=== PATIENT | male | born 1955 | race Caucasian/White ===

== ENCOUNTER 2017-05-06 13:10 | Inpatient (IN) ==
[2017-05-06] MEDS ORDERED: Aspirin 81 MG TAB.CHEW PO STA (15:03)
[2017-05-06 15:13] LABS: Basophils % 0.8 %; Eosinophils # 0.1 K/mcL (0.0-0.6); Eosinophils % 1.2 %; Hematocrit 36.4 % (37.5-50.1); Hemoglobin 11.7 g/dL (12.9-16.9); Immature Granulocytes % 0.2 % (0-4); Lymphocytes # 0.8 K/mcL (0.6-4.6); Lymphocytes % 16.6 %; Mean Corpuscular HGB Conc 32.1 g/dL (31.6-35.5); Mean Corpuscular Hemoglobin 27.5 pg (28.0-33.3); Mean Corpuscular Volume 85.4 fL (83.0-100.0); Mean Platelet Volume 10.6 fL (9.4-12.4); Monocytes # 0.4 K/mcL (0.0-1.3); Monocytes % 7.7 %; Neutrophils # 3.6 K/mcL (1.6-8.9); Platelet Count 113 K/mcL (140-400); Red Blood Count 4.26 M/mcL (4.19-5.50); Red Cell Distribution Width 14.5 % (11.5-14.5); Segmented Neutrophils % 73.5 %
--- NOTE | 2017-05-06 15:29 | Emergency Department Note ---
Disposition Clinical Impression: ACS (acute coronary syndrome) Disposition: Admitted As Inpatient Referrals: Angela Bowden CNP [Primary Care Provider] - Forms: ED Satisfaction Letter Time of Disposition: 15:51 Chest Pain HPI - General Chief Complaint: ED Chest Pain Stated Complaint: CP Source: patient Vital Signs Reviewed: Yes Nursing Notes Reviewed: Yes - History of Present Illness HPI Narrative: History of present illness: 61-year-old male former smoker history of hypertension and high cholesterol. Family history coronary artery disease presents to emergency department with chest pain and pressure radiating to the arm and neck with some shortness of breath. Pain was rated a 5 out of 10. No recent stress test has been performed. Patient is here for further evaluation. He says he has some mild shortness of breath and nausea but denies diaphoresis and weakness Reports having a heart attack about 6 or 7 years ago Severity scale (1-10): 8 - Related Data Home Medications Medication Instructions Recorded Confirmed Exenatide Microspheres [Bydureon] 2 mg SQ QWEEK 05/06/17 05/06/17 Insulin Glargine,Hum.rec.anlog 35 unit SQ HS 05/06/17 05/06/17 [Lantus Solostar] Insulin LISPRO [Humalog Kwikpen 12 unit SQ TIDWM 05/06/17 05/06/17 U-100] Lisinopril [Zestril] 5 mg PO DAILY 05/06/17 05/06/17 Metformin HCl [Glucophage] 1,000 mg PO BIDWM 05/06/17 05/06/17 Metoprolol [Lopressor] 25 mg PO BID 05/06/17 05/06/17 Pravastatin Sodium [Pravachol] 40 mg PO HS 05/06/17 05/06/17 Ranitidine HCl [Zantac] 150 mg PO BID 05/06/17 05/06/17 glipiZIDE [Glipizide] 10 mg PO BID 05/06/17 05/06/17 Allergies Allergy/AdvReac Type Severity Reaction Status Date / Time No Known Drug Allergies Allergy See Verified 05/06/17 13:46 Comments All systems ED: reviewed and negative except as stated. Cardiovascular: Reports: chest pain Chest Pain PMH - Past Medical History Medical history: Reports: diabetes, hypertension, myocardial infarction Surgical history: Reports: no surgical history Psychiatric history: Reports: no psych history - Social History Smoking Status: Never smoker Alcohol use: Reports: none Drug use: Reports: none Physical Exam - General Limitations: no limitations General appearance: alert, in no apparent distress - Head Head exam: atraumatic - Eye Eye exam: Present: normal appearance, PERRL - ENT ENT exam: normal exam, normal oropharynx - Neck Neck exam: Present: normal inspection, full ROM - Chest Chest inspection: Present: normal inspection, symmetric chest wall rise - Respiratory Respiratory exam: Present: normal lung sounds bilaterally - Cardiovascular Cardiovascular exam: Present: regular rate, normal rhythm - Abdominal Exam Abdominal exam: Present: soft, Non-Tender - Extremities Exam Extremities exam: Present: normal inspection - Expanded Lower Extremity Exam Neurovascular/Tendon exam: Present: normal capillary refill Gait: not tested/not observed - Back Exam Back exam: Present: normal inspection, full ROM - Neurological Exam Neurological exam: Present: alert, oriented X3 - Psychiatric Psychiatric exam: Present: normal affect, normal mood - Skin Skin exam: Present: warm, dry, intact Course - Reevaluation(s) Reevaluation #1: Critical elevation of troponin 0.15 consistent with an STEMI. Patient will get ACS heparinization. Admission orders placed. Discussed the case with Dr. Uriostegui who graciously except the patient for admission with a cardiology consult being placed Time: 15:51 Vital Signs Temperature 98.5 F 05/06/17 13:43 Pulse Rate 81 05/06/17 13:43 Respiratory Rate 16 05/06/17 13:43 Blood Pressure 160/97 05/06/17 13:43 O2 Sat by Pulse Oximetry 95 05/06/17 13:43 Temperature 98.5 F 05/06/17 13:43 Pulse Rate 81 05/06/17 15:37 Respiratory Rate 18 05/06/17 15:37 Blood Pressure 154/94 05/06/17 15:37 O2 Sat by Pulse Oximetry 95 05/06/17 15:37 Oxygen Delivery Oxygen Delivery Room Air Chest Pain - Medical Records Medical records reviewed: Yes I reviewed the patient's medical records. - Lab Data Lab results reviewed: Yes I reviewed the patient's lab results. Result diagrams: 05/06/17 15:02 05/06/17 15:02 Lab Results 05/06/17 05/06/17 05/06/17 Range/Units 15:02 15:02 15:02 WBC 4.8 (4.3-11.1) K/mcL RBC 4.26 (4.19-5.50) M/mcL Hgb 11.7 L (12.9-16.9) g/dL Hct 36.4 L (37.5-50.1) % MCV 85.4 (83.0-100.0) fL MCH 27.5 L (28.0-33.3) pg MCHC 32.1 (31.6-35.5) g/dL RDW 14.5 (11.5-14.5) % Plt Count 113 L (140-400) K/mcL MPV 10.6 (9.4-12.4) fL Immature Gran % 0.2 (0-4) % Seg Neutrophils % 73.5 % Lymphocytes % 16.6 % Monocytes % 7.7 % Eosinophils % 1.2 % Basophils % 0.8 % Neutrophils # 3.6 (1.6-8.9) K/mcL Lymphocytes # 0.8 (0.6-4.6) K/mcL Monocytes # 0.4 (0.0-1.3) K/mcL Eosinophils # 0.1 (0.0-0.6) K/mcL Basophils # 0.0 (0.0-0.2) K/mcL Sodium 135 L (136-145) mEq/L Potassium 4.3 (3.5-5.1) mEq/L Chloride 101 (98-107) mEq/L Carbon Dioxide 28 (23-29) mEq/L BUN 13 (8-23) mg/dL Creatinine 0.87 (0.70-1.30) mg/dL Est GFR ( Amer) > 60 (> 60) Est GFR (Non-Af Amer) > 60 (> 60) BUN/Creatinine Ratio 15 (6-26) Glucose 268 H (70-105) mg/dL Calculated Osmolality 290 (280-300) Calcium 9.3 (8.6-10.3) mg/dL Troponin I 0.15 H* (< 0.04) ng/mL - Radiology Data Radiology results reviewed: Yes I reviewed the patient's radiology results. - EKG Data EKG attestation: Yes I reviewed and interpreted this EKG. EKG results narrative: Twelve-lead EKG interpreted without Cardiologic assistance shows the following: On his rhythm at 77 bpm, normal OR, QRS, QT corrected. Borderline left axis deviation. Nonspecific ST-T changes. No acute ischemic changes noted. No acute changes when compared to her prior EKG dated 12/28/2016 Heart Score - Score History: Moderately Suspicious EKG: Non Specific repolarisation Disturbance Age: 45-65 Risk Factors: Equal/Greater than 3 risk factor or history of atherosclerotic disease Troponin: Less than normal limit HEART Score Total: 5
[2017-05-06 15:33] LABS: BUN/Creatinine Ratio 15 (6-26); Blood Urea Nitrogen 13 mg/dL (8-23); Calcium 9.3 mg/dL (8.6-10.3); Carbon Dioxide 28 mEq/L (23-29); Chloride 101 mEq/L (98-107); Glucose 268 mg/dL (70-105); Osmolality,Calculated 290 (280-300); Potassium 4.3 mEq/L (3.5-5.1); Sodium 135 mEq/L (136-145); eGFR For African Americans > 60 (> 60); eGFR For Non-African Americans > 60 (> 60)
[2017-05-06] MEDS: Nitroglycerin 0.4 MG TAB.SUBL SL PRN ×2 (15:35→15:46)
[2017-05-06] MEDS ORDERED: *HR* Heparin 5,000 UNIT/ML VIAL IVP PRN (15:53)
[2017-05-06] MEDS ORDERED: *HR* Heparin 5,000 UNIT/ML VIAL IVP ONE (15:53)
[2017-05-06 16:16] LABS: INR 1.3; Prothrombin Time 13.7 Seconds (9.4-12.1)
[2017-05-06 16:19] LABS: Activated Partial Thrombo Time 29.4 Seconds (26.0-36.0)
[2017-05-06] MEDS ORDERED: Dextrose Gel 15 GM/37.5 ML TUBE PO PRN ×2 (16:52)
[2017-05-06] MEDS ORDERED: Naloxone 0.4 MG/ML INJ IVP PRN (16:52)
[2017-05-06] MEDS ORDERED: D5% in Water 1,000 ML IVC PRN (16:52)
[2017-05-06] MEDS ORDERED: *HR* Dextrose 50 % in Water (Syg) 50 ML SYRINGE IVP PRN (16:52)
--- NOTE | 2017-05-06 17:13 | Internal Med History&Physical ---
Date of Encounter: 05/06/17 Time of Encounter: 17:10 Assessment and Plan (1) ACS (acute coronary syndrome) Current visit: Yes Status: Acute ASSESSMENT: Chest pain due to NSTEMI. Initial troponin 0.15. CAD Risk: HTN, HLD, FM hx, prior SD, DM, Former Smoker Denies having a recent cardiac workup, no recent w/u on file PLAN: - cardiac enzymes x 2 q 6 hr - EKG - ASA - Metoprolol - O2 by NC to keep SpO2 greater than 92% - CBCD, BMP in AM - Fasting lipids - Heparin gtt - 2D Echo - Cardiology consult- ED physician spoke with cardiology and reports that their recommendation are a heparin gtt and a LHC tomorrow. -Continuous tele, and Spo2 monitoring (2) HTN (hypertension) Current visit: Yes Status: Acute Stable, continue antihypertensives Qualifiers: Hypertension type: essential hypertension Qualified Code(s): I10 - Essential (primary) hypertension (3) HLD (hyperlipidemia) Current visit: Yes Status: Acute Continue statin Qualifiers: Hyperlipidemia type: pure hypercholesterolemia Qualified Code(s): E78.00 - Pure hypercholesterolemia, unspecified; E78.0 - Pure hypercholesterolemia (4) DM (diabetes mellitus) Current visit: Yes Status: Acute Continue basal insulin and start sliding scale insulin coverage with diabetic/ cardiac diet. NPO after midnight Qualifiers: Diabetes mellitus type: type 2 Diabetes mellitus complication status: without complication Diabetes mellitus custodial insulin use: with custodial use Qualified Code(s): E11.9 - Type 2 diabetes mellitus without complications ; Z79.4 - termite exterminator (current) use of insulin; Z79.4 - shelter (current) use of insulin; Z79.4 - shelter (current) use of insulin; Z79.4 - shelter ( current) use of insulin (5) DVT prophylaxis Current visit: Yes Status: Acute Heparin gtt Internal Medicine - H&P: HPI Chief complaint: chest pain Admitted From: Home Plans for Post Hospital Care: Home History of present illness: Mr. Escobar is a 61 year old male with a PMH of prior SD, HTN, HLD and diabetes. He also reports he is a former smoker. He presents to [facility] ED today with chest pain/pressure with radiation to the mid back and scapula which began this morning and is continual. Additionally, he notes some mild shortness of breath , diaphoresis and weakness. He denies any fever, chills, nausea, vomiting, abdominal pain or unilateral extremity swelling/pain. His initial troponin is 0.15 Past Med Surg Social Fam HX - Past Medical History Medical history: diabetes, hypertension, myocardial infarction Psychiatric history: no psych history - Past Surgical History Surgical History: no surgical history - Social History Smoking Status: Never smoker Smokeless Tobacco Status: No Alcohol use: none Drug use: none - Family History Brother Hx Family Cardiac Disorders: Yes (SD) Hx Family Endocrine Disorder: Yes (DM) Internal Medicine - H&P: Meds Exenatide Microspheres [Bydureon] 2 mg SQ QWEEK 05/06/17 [History] Insulin Glargine,Hum.rec.anlog [Lantus Solostar] 35 unit SQ HS 05/06/17 [History ] Insulin LISPRO [Humalog Kwikpen U-100] 12 unit SQ TIDWM 05/06/17 [History] Lisinopril [Zestril] 5 mg PO DAILY 05/06/17 [History] Metformin HCl [Glucophage] 1,000 mg PO BIDWM 05/06/17 [History] Metoprolol [Lopressor] 25 mg PO BID 05/06/17 [History] Pravastatin Sodium [Pravachol] 40 mg PO HS 05/06/17 [History] Ranitidine HCl [Zantac] 150 mg PO BID 05/06/17 [History] glipiZIDE [Glipizide] 10 mg PO BID 05/06/17 [History] 3 Allergy/AdvReac Type Severity Reaction Status Date / Time No Known Drug Allergies Allergy See Verified 05/06/17 13:46 Comments All Systems PM: A 10-system review of systems was performed and is negative for pertinent findings except as documented above in the HPI. - Constitutional Constitutional: no chills, no fever(s), no night sweats - EENT Eyes: no change in vision, no discharge, no pain, no photophobia Ears: no ear discharge, no ear pain, no tinnitus Nose, mouth and throat: no dysphagia, no nasal discharge, no neck pain, no sore throat - Cardiovascular Cardiovascular ROS IM: as per HPI, dyspnea, no edema, no irregular heart rhythm , no lightheadedness, no orthopnea, no palpitations, no syncope - Respiratory Respiratory: as per HPI, no cough - Gastrointestinal Gastrointestinal: no abdominal pain, no diarrhea, no hematemesis, no hematochezia, no melena, no nausea, no vomiting - Musculoskeletal Musculoskeletal ROS IM: no numbness, no tingling - Integumentary Integumentary IM: no rash, no unusual bruising - Neurological Neurological ROS: no confusion, no convulsions, no focal weakness, no numbness, no tingling, no tremor(s) - Hematologic/Lymphatic Hematologic/Lymphatic: no easy bruising - Constitutional Vitals: Temp Pulse Resp BP Pulse Ox 98.5 F 81 18 135/95 95 05/06/17 13:43 05/06/17 15:37 05/06/17 16:33 05/06/17 16:33 05/06/17 15:37 General appearance: Present: cooperative, A&O X 3, no acute distress, answers questions appropriately - Head Head exam: Present: atraumatic, normocephalic - Eye Eye exam: Present: PERRL, conjuntiva pink, sclera anicteric Pupils: Present: PERRL - Neck Neck exam general surgery: Present: supple, trachea midline. Absent: lymphadenopathy - Respiratory Respiratory exam: Present: CTAB. Absent: accessory muscle use, rales, rhonchi, wheezes - Cardiovascular Cardiovascular exam: Present: RRR, +S1, +S2. Absent: diastolic murmur, gallop, rubs, systolic murmur - GI/Abdominal GI/Abdominal exam: Present: normal bowel sounds, soft, no peritoneal signs. Absent: distended, tenderness - Extremities Exam Extremities exam: Present: warm, radial pulses palpable and symmetrical. Absent : calf tenderness, cyanotic, pedal edema - Neurological Exam Neurological exam: Present: CN II-XII intact, oriented X3, no focal deficits. Absent: pronater drift, facial droop, speech deficit - Skin Skin exam: Present: dry, intact Internal Med - H&P Results - Labs CBC & Chem 7: 05/06/17 15:02 05/06/17 15:02 - EKG Data -: EKG Interpreted by Myself EKG shows normal: sinus rhythm Rate: normal - EKG Data EKG comments: NSR, no ischemic changes noted 05/06/17 17:16 - Impressions Impressions Chest X-Ray 05/06/17 13:46 IMPRESSION: No acute process. D/ / Yuval Juarez MD / Yuval Juarez MD Interpreting Provider: Yuval Juarez MD
[2017-05-06] MEDS: Heparin 25,000 UNIT/500 ML D5W 25,000 UNIT/500 ML BAG IVC SCH (18:01)
[2017-05-06] MEDS ORDERED: NON-FORMULARY MEDICATION 1 EACH EACH (Pravastatin Sodium [Pravachol] 40 MG) PO SCH (21:00)
[2017-05-06] MEDS: Insulin LISPRO 300 UNITS/3 ML VIAL SQ SCH (21:42)
[2017-05-06] MEDS: Insulin DETEMIR 100 UNIT/ML X5UNITS SQ SCH (21:42)
[2017-05-06] MEDS: Famotidine 20 MG TABLET PO SCH (21:42)
[2017-05-07] MEDS: *HR* Heparin 5,000 UNIT/ML VIAL IVP PRN ×2 (01:48→09:53)
[2017-05-07 03:06] LABS: Hematocrit 34.4 % (37.5-50.1); Hemoglobin 10.9 g/dL (12.9-16.9); Mean Corpuscular HGB Conc 31.7 g/dL (31.6-35.5); Mean Corpuscular Hemoglobin 27.3 pg (28.0-33.3); Mean Corpuscular Volume 86.2 fL (83.0-100.0); Mean Platelet Volume 10.6 fL (9.4-12.4); Platelet Count 104 K/mcL (140-400); Red Blood Count 3.99 M/mcL (4.19-5.50); Red Cell Distribution Width 14.4 % (11.5-14.5)
[2017-05-07 03:32] LABS: Chol/HDL Ratio 4.5 (0-4.9)
[2017-05-07 03:33] LABS: BUN/Creatinine Ratio 14 (6-26); Blood Urea Nitrogen 13 mg/dL (8-23); Carbon Dioxide 28 mEq/L (23-29); Chloride 101 mEq/L (98-107); Glucose 274 mg/dL (70-105); Osmolality,Calculated 292 (280-300); Potassium 4.1 mEq/L (3.5-5.1); Sodium 136 mEq/L (136-145); eGFR For African Americans > 60 (> 60); eGFR For Non-African Americans > 60 (> 60)
--- NOTE | 2017-05-07 06:37 | Electrocardiograph Report ---
[place] [id number] Test Date: 2017-05-06 Pat Name: Julian Escobar Department: 104 Room: [id number] Gender: M Body Piercer: VERO : 1955 Requested By: Padmini Miranda Order Number: [id number] Reading MD: Zay Bautista MD Measurements Intervals [place] Rate: 77 P: 28 [place]: 176 QRS: -26 QRSD: 110 T: 13 QT: 407 QTc: 439 Interpretive Statements SINUS RHYTHM BORDERLINE LEFT AXIS DEVIATION Poor R wave progression Electronically Signed On 05-07-2017 6:36:34 EST by Zay Bautista MD
--- NOTE | 2017-05-07 09:31 | Cardiology Consult Note ---
Date of Encounter: 05/07/17 Time of Encounter: 09:27 Assessment and Plan (1) NSTEMI (non-ST elevated myocardial infarction) Current Visit: Yes Status: Acute Troponin elevation up to 2.3. EKG shows Sr with left axis deviation. Currently pain free. Reports history of AL 8 years ago. He underwent LHC with no intervention at that time. Continue heparin gtt, asa, statin, and bb. LHC R/B/A discussed and he agrees to proceed. Check TTE. (2) HTN (hypertension) Current Visit: Yes Status: Acute B/p acceptable. Qualifiers: Hypertension type: essential hypertension Qualified Code(s): I10 - Essential (primary) hypertension (3) DM (diabetes mellitus) Current Visit: Yes Status: Acute Qualifiers: Diabetes mellitus type: type 2 Diabetes mellitus complication status: without complication Diabetes mellitus long term care phlebotomist insulin use: with long term care phlebotomist use Qualified Code(s): E11.9 - Type 2 diabetes mellitus without complications ; Z79.4 - ferry terminal agent (current) use of insulin; Z79.4 - correction (current) use of insulin; Z79.4 - correction (current) use of insulin; Z79.4 - correction ( current) use of insulin Discussion w patient/family: The assessment and plan as outlined above was discussed with the patient and/or family members who expressed understanding and agreement. All questions were answered. Thank you for involving us in the care of your patient. Please call with any questions. History of Present Illness Consult date: 05/07/17 Requesting physician: Deonte Alston Consult reason: NSTEMI Chief complaint: Chest pain History of present illness: Mr. Escobar is a 61 year old male with a past medical history of DM, HTN, HLD, and AL 8 years ago. He presented to the hospital with several hours of midsternal chest pain radiating to his shoulder blades. His pain started when he woke up in the morning and increased as he moved around his house. He associates his pain with nausea. Denies SOB, palpitations, or diaphoresis. Cardiac work-up included EKG that showed no acute change. He was found to have elevated troponin up to 2.30. He is currently pain free. Past Med Surg Social Fam HX - Past Medical History Medical history: diabetes, hypertension, myocardial infarction Psychiatric history: no psych history - Past Surgical History Surgical History: no surgical history - Social History Smoking Status: Never smoker Smokeless Tobacco Status: No Alcohol use: none Drug use: none - Family History Brother Hx Family Cardiac Disorders: Yes Hx Family Respiratory Disorders: No Hx Family Cancer: No Hx Family Endocrine Disorder: Yes Hx Family Neurologic Disorders: No Hx Family Medical Disorders: Yes Medications and Allergies Exenatide Microspheres [Bydureon] 2 mg SQ QWEEK 05/06/17 [History] Insulin Glargine,Hum.rec.anlog [Lantus Solostar] 35 unit SQ HS 05/06/17 [History ] Insulin LISPRO [Humalog Kwikpen U-100] 12 unit SQ TIDWM 05/06/17 [History] Lisinopril [Zestril] 5 mg PO DAILY 05/06/17 [History] Metformin HCl [Glucophage] 1,000 mg PO BIDWM 05/06/17 [History] Metoprolol [Lopressor] 25 mg PO BID 05/06/17 [History] Pravastatin Sodium [Pravachol] 40 mg PO HS 05/06/17 [History] Ranitidine HCl [Zantac] 150 mg PO BID 05/06/17 [History] glipiZIDE [Glipizide] 10 mg PO BID 05/06/17 [History] 3 Allergy/AdvReac Type Severity Reaction Status Date / Time No Known Drug Allergies Allergy See Verified 05/06/17 13:46 Comments All Systems Review: A 10-system review of systems was performed and is negative for pertinent findings except as documented above in the HPI. Physical Examination Vital Signs, Last 4 Hours Temp Pulse Resp BP Pulse Ox 05/07/17 06:55 98.4 F 79 15 125/84 96 General: Conversant, No Apparent Distress HEENT: Atraumatic, Normocephaly, Mucus Membranes Moist Neck: No JVD, Normal carotid pulses Cardiac: Reg Rate and Rhythm, Normal S1 and S2, No Murmur Lungs: Normal Breath Sounds, No Wheeze, Rales, Rhonchi Neuro: Alert and responsive, No focal deficits noted Abdomen: Soft, Non-Tender Skin: No rashes noted on visualized skin Musculoskeletal: No Chest Wall Tenderness Extremities: No Clubbing, No Cyanosis, No Edema, Normal Pulses Results 05/07/17 02:52 05/07/17 02:52 Lab Results 05/06/17 05/07/17 05/07/17 21:14 00:28 02:52 WBC Hgb Hct Plt Count APTT 46.4 H D Sodium Potassium Chloride Carbon Dioxide BUN Creatinine Glucose Calcium Troponin I 1.69 H* 2.30 H* 05/07/17 05/07/17 05/07/17 02:52 02:52 07:35 WBC 4.9 Hgb 10.9 L Hct 34.4 L Plt Count 104 L APTT 54.0 H Sodium 136 Potassium 4.1 Chloride 101 Carbon Dioxide 28 BUN 13 Creatinine 0.93 Glucose 274 H Calcium 9.0 Troponin I - Imaging and Cardiology Echo: pending Cardiac cath: pending - EKG Interpretation EKG results cardiology: personally reviewed Consult Discharge Plan - Plan Referrals: Angela Bowden, ARMINDA [Primary Care Provider] -
[2017-05-07] MEDS: Insulin LISPRO 300 UNITS/3 ML VIAL SQ SCH ×4 (09:33→20:02)
[2017-05-07] MEDS: Aspirin 81 MG TAB.CHEW PO SCH (09:38)
[2017-05-07] MEDS: Famotidine 20 MG TABLET PO SCH ×2 (09:38→20:08)
[2017-05-07] MEDS ORDERED: Heparin 1,000 UNITS/500 mL 500 ML ONE (09:41)
[2017-05-07] MEDS ORDERED: 0.9 % Sodium Chloride 1,000 ML ONE ×2 (09:41→09:52)
[2017-05-07] MEDS ORDERED: *HR* Heparin 10,000 UNIT/10 ML VIAL ONE (09:41)
[2017-05-07] MEDS ORDERED: ISOVUE-370 200 ML INFUS..BTL IV ONE ×2 (09:41→10:38)
[2017-05-07] MEDS ORDERED: Nitroglycerin 1,000 MCG/10 ML VIAL IV ONE (09:41)
[2017-05-07] MEDS: Heparin 25,000 UNIT/500 ML D5W 25,000 UNIT/500 ML BAG IVC SCH (09:44)
[2017-05-07] MEDS ORDERED: *HR* Bivalirudin 250 MG VIAL IVC ONE ×2 (09:51→11:23)
--- NOTE | 2017-05-07 09:51 | Pre-Sedation Evaluation ---
Pre-sedation evaluation - Pre-sedation checklist Date of procedure: 05/07/17 Procedure: [facility] Recent Vitals: Last Vital Signs Temp 98.4 F 05/07/17 06:55 Pulse 79 05/07/17 06:55 Resp 15 05/07/17 06:55 BP 125/84 05/07/17 06:55 Pulse Ox 96 05/07/17 06:55 H&P (including ROS) documented in medical record: Yes Previous reaction to sedatives/anesthetics: No Dietary Status: NPO after Midnight Airway Assessment: Patient can open mouth completely, TMJ function normal, Micrognathia (under-bite, receding chin) absent, Neck with adequate range of motion Dentition: No loose teeth or bridges Possible difficult airway: No ASA Classification *see protocol: CLASS II-Mild systemic disease Plan of Care: Pt appropriate candidate for procedure/moderate/conscious sedation , Risks/benefits of procedure/sedation discussed w/ patient/family
[2017-05-07] MEDS ORDERED: *HR* FentaNYL (PF) 100 MCG/2 ML VIAL ONE (10:16)
[2017-05-07] MEDS ORDERED: *HR* Midazolam HCl 2 MG/2 ML VIAL ONE (10:16)
--- NOTE | 2017-05-07 10:35 | Internal Med Progress Note ---
<Chase Guadalupe - Last Filed: 05/07/17 16:15> Date of Encounter: 05/07/17 Time of Encounter: 10:32 - Assessment and plan (1) ACS (acute coronary syndrome) Current Visit: Yes Status: Acute Assessment and plan: - Patient complained of chest pain without exertional component, partially relieved by nitroglycerin - EKG in emergency room showed sinus rhythm with left axis deviation - Pain Free at time of interview - Initial troponin emergency room of 0.15 which is up trended to 1.64, 2.30 - Cardiology consult and, appreciate recommendations - Started on heparin drip Plan -Cardiology will perform left heart catheterization this afternoon - Symptomatic management - Continue aspirin, atorvastatin, beta myrna, ticagrelor (2) HTN (hypertension) Current Visit: Yes Status: Acute Assessment and plan: Currently well controlled with most recent measurement of 109/83 Continue home medications Qualifiers: Hypertension type: essential hypertension Qualified Code(s): I10 - Essential (primary) hypertension (3) HLD (hyperlipidemia) Current Visit: Yes Status: Acute Assessment and plan: Continue statin Qualifiers: Hyperlipidemia type: pure hypercholesterolemia Qualified Code(s): E78.00 - Pure hypercholesterolemia, unspecified (4) DM (diabetes mellitus) Current Visit: Yes Status: Acute Assessment and plan: -Most recent A1c in 04/19/17 of 7.9% - Most recent blood sugar of 242 - Continue low-dose sliding scale insulin following left heart catheterization and nothing by mouth status, may increase tomorrow Qualifiers: Diabetes mellitus type: type 2 Diabetes mellitus complication status: without complication Diabetes mellitus parts counterman insulin use: with mcc use Qualified Code(s): E11.9 - Type 2 diabetes mellitus without complications ; Z79.4 - correction (current) use of insulin; Z79.4 - correction (current) use of insulin; Z79.4 - terminal operations manager (current) use of insulin; Z79.4 - terminal operations manager ( current) use of insulin (5) NSTEMI (non-ST elevated myocardial infarction) Current Visit: Yes Status: Acute Assessment and plan: As above for acute coronary syndrome (6) DVT prophylaxis Current Visit: Yes Status: Acute Assessment and plan: On heparin drip for ACS as above - Time Spent With Patient 25 - 35 minutes - Subjective Interval history: Patient was seen and examined at bedside this morning. He states that his chest pain began upon waking yesterday morning and was not provoked with exertion. He Said it lasted for approximately 12 hours and was partially relieved with nitroglycerin. He has never experienced this sensation before, although he does have a history of a myocardial infarction. Currently during time of interview, patient is asymptomatic and denies any symptoms of chest pain, shortness of breath, fevers, chills, palpitations. - Constitutional Vitals: Temp Pulse Resp BP Pulse Ox 98.4 F 79 15 125/84 96 05/07/17 06:55 05/07/17 06:55 05/07/17 06:55 05/07/17 06:55 05/07/17 09:00 General appearance: Present: cooperative, A&O X 3, no acute distress, answers questions appropriately Exam: Gen.: Vitals noted. No acute distress. AAOx3 HEENT: PERRL/EOMI, oropharynx clear, Normocephalic, atraumatic Cardiac: RRR, no murmur, +S1/S2 Pulmonary: CTA bilaterally, no wheezes, rales or rhonchi, equal chest expansion Abdomen: soft, nontender, BS noted, no guarding MSK: ROM intact, no joint swelling noted Extremities: no BLE edema, nontender calf, no cyanosis or clubbing Neuro: A&Ox3, moves all extremities, no focal deficits Psych: Appropriate mood and behavior Internal Medicine: Result - Labs CBC & Chem 7: 05/07/17 02:52 05/07/17 02:52 Labs: Short CBC 05/07/17 Range/Units 02:52 WBC 4.9 (4.3-11.1) K/mcL Hgb 10.9 L (12.9-16.9) g/dL Hct 34.4 L (37.5-50.1) % Plt Count 104 L (140-400) K/mcL BMP 05/07/17 02:52 Sodium 136 Potassium 4.1 Chloride 101 Carbon Dioxide 28 BUN 13 Creatinine 0.93 Glucose 274 H Calcium 9.0 Cardiac Enzymes 05/06/17 05/07/17 Range/Units 21:14 02:52 Troponin I 1.69 H* 2.30 H* (< 0.04) ng/mL - ABG Interpretation ABG results: PT/INR, D-dimer PT 13.7 Seconds (9.4-12.1) H 05/06/17 15:02 Consult Discharge Plan - Plan Referrals: Angela Bowden CNP [Primary Care Provider] - <Haja Mario - Last Filed: 05/07/17 18:11> Date of Encounter: 05/07/17 - Assessment and plan (1) NSTEMI (non-ST elevated myocardial infarction) Current Visit: Yes Status: Acute (2) Coronary artery disease Current Visit: Yes Status: Acute Qualifiers: Coronary Disease-Associated Artery/Lesion type: ione artery [place] vs. transplanted heart: ione heart Associated angina: with unstable angina Qualified Code(s): I25.110 - Atherosclerotic heart disease of ione coronary artery with unstable angina pectoris (3) DM (diabetes mellitus) Current Visit: Yes Status: Chronic Qualifiers: Diabetes mellitus type: type 2 Diabetes mellitus complication status: with hyperglycemia Diabetes mellitus parts counterman insulin use: with mcc use Qualified Code(s): E11.65 - Type 2 diabetes mellitus with hyperglycemia; Z79.4 - terminal operations manager (current) use of insulin; Z79.4 - terminal operations manager (current) use of insulin ; Z79.4 - correction (current) use of insulin; Z79.4 - terminal operations manager (current) use of insulin (4) HTN (hypertension) Current Visit: Yes Status: Chronic Qualifiers: Hypertension type: essential hypertension Qualified Code(s): I10 - Essential (primary) hypertension (5) HLD (hyperlipidemia) Current Visit: Yes Status: Chronic Qualifiers: Hyperlipidemia type: mixed hyperlipidemia Qualified Code(s): E78.2 - Mixed hyperlipidemia (6) Insomnia Current Visit: Yes Status: Chronic Qualifiers: Insomnia type: primary Qualified Code(s): F51.01 - Primary insomnia - Constitutional Vitals: Temp Pulse Resp BP Pulse Ox 97.9 F 86 16 102/76 93 05/07/17 13:57 05/07/17 17:30 05/07/17 15:54 05/07/17 17:30 05/07/17 17:30 Internal Medicine: Result - Labs CBC & Chem 7: 05/07/17 02:52 05/07/17 02:52 Labs: Short CBC 05/07/17 Range/Units 02:52 WBC 4.9 (4.3-11.1) K/mcL Hgb 10.9 L (12.9-16.9) g/dL Hct 34.4 L (37.5-50.1) % Plt Count 104 L (140-400) K/mcL BMP 05/07/17 02:52 Sodium 136 Potassium 4.1 Chloride 101 Carbon Dioxide 28 BUN 13 Creatinine 0.93 Glucose 274 H Calcium 9.0 Cardiac Enzymes 05/06/17 05/07/17 Range/Units 21:14 02:52 Troponin I 1.69 H* 2.30 H* (< 0.04) ng/mL - ABG Interpretation ABG results: PT/INR, D-dimer PT 13.7 Seconds (9.4-12.1) H 05/06/17 15:02 - Attending Attestation I examined this patient and my medical decision-making was reviewed with the Resident Physician on 05/07/17. I agree with the documented findings, disposition and treatment plan as described except to the extent set forth below. Mr Escobar is currently admitted for acute NSTEMI. He had LHC today and stents placed. He remains moderate to high risk due to potential for worsening clinical status. Mr Escobar is s/p LHC. He is resting comfortably at this time. No fever. No pain. Exam Alert. Comfortable Mucus membranes dry Heart reg No wheeze I/P 1. NSTEMI 2. CAD 3. Insomnia Further diagnoses and plan as above.
[2017-05-07] MEDS ORDERED: *HR* Ticagrelor 90 MG TABLET ONE (11:08)
--- NOTE | 2017-05-07 11:52 | Invasive Diagnostic Lab Proc ---
Name: Julian Escobar Date of Study: 05/07/2017 Date: 1955 Ht: 74.0in Medical Record#: [id number] Age: 61 Wt: 277.78lb Gender: Male BSA: 2.5 Order #: [id number] BMI: 35.65 Physicians Procedure Physician: Aleyda Hein MD, [facility] Referring MD: Referring MD: Staff Name Position Time In Rosalina Haas RN Monitor 10:00 AM Briana Mccord RN Filtering Machine Tender Helper 10:00 AM Alfred Juarez RN Nurse 10:00 AM Divya Mckenzie RT (R) Scrub 10:00 AM Indications Indication Non-Stemi Procedures Performed Procedure L HRT ARTERY/VENTRICLE ANGIO PRQ CARD LOUISE STENT W/ANGIO 1 VSL PRQ CARD STENT W/ANGIO ADDL Pre-Procedure Checklist Informed consent is complete signed and on chart. H&P is on chart. ID band is on and ID verified with patient. Patient NPO for procedure The procedure was described for the patient and questions were answered. Blood Pressure: 125/84 ECG is on chart. Rhythm: NSR Plan of Care Patient will tolerate the procedure without complications. Adequate level of comfort will be maintained. Hemodynamics will remain stable Patient will recover from procedure without complications. Respiratory function will be maintained. Cardiac rhythm will remain stable. Patient temperature will be maintained. Patient and/or family have verbalized understanding of the procedure. Patient Education Chief Complaint/Reason for Test: Cardiac Cath Developmental Category: Geriatric (65+ years) Developmentally Appropriate for Age: Yes Learning Barriers: None Education Needs: Procedure Education Method: Verbal Information Taught: Cardiac Cath Educational Evaluation: Able to repeat information Intravenous Access Time IV Size Location DC'd Fluid/Drip Rate Units RN 0.9NaCl ml/hr Allergies No Known Drug Allergies Vital Signs Time BP (mmHg) HR (bpm) O2 Sat. RR (bpm) LOC 09:59 AM 125 / 84 79 96 % 15 5 = Fully awake and oriented or at pre-proc level 10:13 AM / % 5 = Fully awake and oriented or at pre-proc level 10:13 AM / % 4 = Oriented but drowsy 10:28 AM / % 4 = Oriented but drowsy 10:45 AM / % 4 = Oriented but drowsy 11:00 AM / % 4 = Oriented but drowsy 11:15 AM / % 4 = Oriented but drowsy 10:16 AM 161 / 96 82 100 % 10:21 AM 122 / 87 80 99 % 18 10:26 AM 130 / 80 77 98 % 27 10:31 AM 121 / 77 79 96 % 15 10:36 AM 120 / 72 75 98 % 13 10:41 AM 122 / 81 80 97 % 11 10:46 AM 112 / 80 76 99 % 14 10:51 AM 126 / 81 74 98 % 12 10:56 AM 126 / 85 74 99 % 12 11:01 AM 134 / 74 74 99 % 13 11:06 AM 116 / 77 79 96 % 11 11:11 AM 109 / 73 75 97 % 14 11:17 AM 121 / 70 73 98 % 15 11:21 AM 120 / 84 73 99 % 11 11:26 AM 120 / 76 76 96 % 18 11:31 AM 123 / 84 74 100 % 15 Procedural Medications Time Medication Dose Units Method Given By 10:13 AM Oxygen 2 L/min nasal cannula Briana Mccord RN 10:17 AM Versed 2 mg Intravenous Briana Mccord RN 10:17 AM Fentanyl 50 mcg Intravenous Briana Mccord RN 10:26 AM Benadryl 25 mg Intravenous Briana Mccord RN 10:27 AM Lidocaine 2% 17 ml Subcutaneous Aleyda Hein MD, FACC 10:49 AM Angiomax 0.75mg/kg bolus: 19 ml Intravenous Briana Mccord RN 10:50 AM Angiomax 1.75mg/kg/hr: 44 ml Intravenous Briana Mccord RN 11:03 AM Nitroglycerin 200 mcg Intracoronary Aleyda Hein MD, FACC 11:24 AM Nitroglycerin 200 mcg Intracoronary Aleyda Hein MD, FACC 11:28 AM Brilinta 180 mg Orally Briana Mccord RN ASA Classification: CLASS II- Mild systemic disease (i.e. well-controlled diabetes, hypertension, asthma, cigarette smoking) Nedra Score Preprocedure Postprocedure Activity 2- Moves 4 extremities sustained head lift Activity 2- Moves 4 extremities sustained head lift Circulation 2- SBP +/= 20 points of pre-anesthetic level Circulation 2- SBP +/= 20 points of pre-anesthetic level Consciousness 2- Awake and alert oriented x 3 Consciousness 2- Awake and alert oriented x 3 O2 Saturation 2- Able to maintain O2 satruation of 92% on room air O2 Saturation 2- Able to maintain O2 satruation of 92% on room air Respiratory 2- Able to deep breathe and cough well Respiratory 2- Able to deep breathe and cough well Total Score 10 Total Score 10 Contrast Agent: Isovue Diagnostic Contrast: 312 ml Total Contrast: 312 ml Fluoro Dose: 1596 mGy Activated Clotting Time Time Seconds to Clot 10:49 AM 165 Procedure Log Time Note Enter By 09:52 AM CathStat 10:00 AM Rosalina Haas RN Position: Monitor Time in: 10:00 [facility] 10:00 AM Briana Mccord RN Position: Filtering Machine Tender Helper Time in: 10:00 [facility] 10:00 AM Alfred Juarez RN Position: Nurse Time in: 10:00 [facility] 10:00 AM Divya Mckenzie RT (R) Position: Scrub Time in: 10:00 [facility] 10:00 AM ASA Class CLASS II- Mild systemic disease (i.e. well-controlled diabetes, hypertension, asthma, cigarette smoking) [facility] 10:13 AM [facility] skill labor [facility] Patient charges- Angio tray pack, Navilyst 3mm J, Pulse Oximetry and ACIST tubing and transducer [email or web address] 10:13 AM Case Delayed No [email or web address] 10:13 AM Hair removed from procedure site in procedure lab using clippers. Bilateral groin prepped with Chloraprep by Briana Mccord RN, then patient was draped. Skin intact. [email or web address] 10:13 AM Physican paged/called 10:13. tsoummers 10:13 AM Physican responded and notified patient is ready 10:13 tsoummers 10:13 AM Physician arrived 10:13 tsoummers 10:13 AM Meet and greet completed [email or web address] 10:13 AM Sign in performed according to hospital policy. [email or web address] 10:13 AM Procedure start 10:13 tsoummers 10:13 AM Time: 10:13 Oxygen on at 2 L/min per nasal cannula by Briana Mccord RN tsoummers 10:13 AM Time: 10:13 Patient comfortable and pain free: Yes tsoummers 10:13 AM Time: 10:13LOC: 5 = Fully awake and oriented or at pre-proc level [email or web address] 10:14 AM Clinical Presentation: Non-STEMI [facility] 10:14 AM Case Start 10:15 AM Vitals capture started with the following parameters, Patient=Adult, Interval=5 min, Initial Teakmdux=429 mmHg, Deflation Rate=5 mmHg, Cuff placed on Right Arm 10:15 AM Vitals capture stopped. 10:16 AM Vitals capture started with the following parameters, Patient=Adult, Interval=5 min, Initial Tdvoktdx=198 mmHg, Deflation Rate=5 mmHg, Cuff placed on Right Arm 10:16 AM HR=82 bpm, AHCE=809/96 mmhg, IiV8=507.0 % 10:17 AM Time: 10:23 Versed 2 mg Intravenous [facility] 10[facility]17 AM Time: 10:23 Fentanyl 50 mcg Intravenous Given by Briana Mccord RN [facility] 10:18 AM Small rash observed to right groin prior to procedure per Briana BORDEN. No open wounds or drainage noted. [facility] 10:20 AM Recorded ECG: HR=78 Condition=Condition 1 10:21 AM HR=80 bpm, ACQV=434/87 mmhg, SpO2=99.0 %, Resp=18 B/min 10:23 AM Pressure channel 1 zeroed. 10:25 AM Time out performed according to hospital policy [facility] 10:26 AM HR=77 bpm, YHZK=194/80 mmhg, SpO2=98.0 %, Resp=27 B/min 10:27 AM Time: 10:26 Benadryl 25 mg Intravenous Given by Briana Mccord RN [facility] 10: AM Time: : 17 ml Lidocaine 2% to right groin Subcutaneous Given by Aleyda Hein MD, [facility] 10:27 AM Access obtained by percutaneous puncture. 5Fr 10cm Terumo [place] sheath placed in right Femoral artery. [id number] [facility] 10:27 AM 0.035 145cm Navilyst 3mmJ wire [id number] [facility] 10:27 AM 5Fr FL 4 catheter inserted over the wire [facility] 10:28 AM Wire removed [facility] 10:28 AM LCA angiography performed in multiple views. [facility] 10:28 AM Recorded Pressure: Ao, HR=81, Condition=Condition 1 (Aorta) Ao 114/79/94 10:28 AM Time: 10:13 Patient comfortable and pain free: Yes [email or web address] 10:28 AM Time: 10:13LOC: 4 = Oriented but drowsy tsoummers 10:31 AM HR=79 bpm, ZAEA=369/77 mmhg, SpO2=96.0 %, Resp=15 B/min 10:34 AM Catheter removed [facility] 10:34 AM 5Fr FR 4 catheter inserted over the wire [facility] 10:35 AM RCA angiography performed in multiple views. [email or web address] 10:36 AM Recorded Pressure: Ao, HR=74, Condition=Condition 1 (Aorta) Ao 101/75/88 10:36 AM HR=75 bpm, HZBU=184/72 mmhg, SpO2=98.0 %, Resp=13 B/min 10:37 AM Catheter removed [facility] 10:38 AM 5Fr Pigtail catheter inserted over the wire [facility] 10:38 AM Catheter selectively placed [facility] 10:38 AM Bolus angiogram of left Ventricle complete: 8 ml/sec for a total of 24 mls [facility] 10:38 AM Pressure channel 1 zeroed. 10:38 AM Recorded Pressure: LV, HR=79, Condition=Condition 1 (Left Ventricle) LV 96/11/11 10:39 AM Recorded Pressure: LV, Ao, HR=77, Condition=Condition 1 (Left Ventricle) LV 210/88/169, (Aorta) Ao 99/75/87 10:40 AM Catheter removed [facility] 10:40 AM Coronary Dominance: right [email or web address] 10:41 AM HR=80 bpm, PZRC=421/81 mmhg, SpO2=97.0 %, Resp=11 B/min 10:45 AM Time: 10:28LOC: 4 = Oriented but drowsy tsoummers 10:45 AM Time: 10:28 Patient comfortable and pain free: Yes tsoummers 10:46 AM Lesion found in 2nd Diagonal. Pre Stenosis: 99 Pre ROBERT Flow: 3: Complete and Brisk Flow/Perfusion tsoummers 10:46 AM HR=76 bpm, JRYA=572/80 mmhg, SpO2=99.0 %, Resp=14 B/min 10:47 AM Sheath exchanged for a 6 Fr 11 cm Cordis Nayely sheath [id number] tsoummers 10:47 AM Inflation device was opened. [email or web address] 10:48 AM 6Fr XB LAD 3.5 [place] Bright-Tip guide catheter was used to cannulate the PCI vessel successfully. reused? No tsoummers 10:49 AM At 10:49 the ACT was 165 seconds. [email or web address] 10:49 AM Time: 10:49 Angiomax 0.75mg/kg bolus: 19 ml Intravenous Given by Briana Mccord RN tsoummers 10:50 AM Time: 10:50 Angiomax 1.75mg/kg/hr: 44 ml Intravenous Given by Briana Mccord RN Caceres pump tsoummers 10:50 AM Recorded Pressure: Ao, HR=75, Condition=Condition 1 (Aorta) Ao 105/65/83 10:51 AM HR=74 bpm, XXTG=551/81 mmhg, SpO2=98.0 %, Resp=12 B/min 10:52 AM .014 PT Graphix 182cm guide wire across target lesion- successful. reused? No in LAD tsoummers 10:52 AM Mid/Distal Left Anterior Descending Coronary Artery and diagonal branches with 99% stenosis. tsoummers 10:54 AM .014 Prowater 190cm guide wire across target lesion- successful. reused? No in 2nd Diagonal. tsoummers 10:56 AM 2.0 mm x 15 mm Emerge Monorail balloon across target lesion- successful. reused? No. On Prowater tsoummers 10:56 AM Balloon inflated @ 8 sunil for 15 seconds tsoummers 10:56 AM HR=74 bpm, UJEG=665/85 mmhg, SpO2=99.0 %, Resp=12 B/min 10:57 AM Balloon inflated @ 6 sunil for 15 seconds tsoummers 10:57 AM Balloon inflated @ 10 sunil for 20 seconds tsoummers 10:58 AM Balloon catheter removed intact. [email or web address] 10:59 AM 2.25mm x 38mm Synergy drug-eluting stent across target lesion- successful Lot #[id number] on prowater tsoummers 11:00 AM Time: 10:45 Patient comfortable and pain free: Yes tsoummers 11:00 AM Time: 10:45LOC: 4 = Oriented but drowsy tsoummers 11:01 AM Stent deployed @ 12 sunil for 30 seconds tsoummers 11:01 AM HR=74 bpm, WTWO=315/74 mmhg, SpO2=99.0 %, Resp=13 B/min 11:02 AM Stent delivery system removed intact. [email or web address] 11:03 AM Recorded Pressure: Ao, HR=72, Condition=Condition 1 (Aorta) Ao 118/73/93 11:03 AM Time: 11:03 Nitroglycerin 200 mcg Intracoronary Given by Aleyda Hein MD, [facility] tsoummers 11:04 AM Guide wire removed intact. PT graphix tsoummers 11:06 AM HR=79 bpm, HSVQ=169/77 mmhg, SpO2=96.0 %, Resp=11 B/min 11:07 AM Guide wire removed intact. Prowater tsoummers 11:08 AM .014 PT Graphix 182cm guide wire across target lesion- successful. reused? No tsmmers 11:11 AM 2.0 x 15mm Emerge balloon [facility]inserted to OM[facility] 11:11 AM HR=75 bpm, ZYLA=369/73 mmhg, SpO2=97.0 %, Resp=14 B/min 11:12 AM Balloon inflated @ 8 sunil for 16 seconds tsoummers 11:12 AM Lesion found in 1st Marginal. Pre Stenosis: 99 Pre ROBERT Flow: 3: Complete and Brisk Flow/Perfusion tsoummers 11:12 AM Balloon inflated @ 10 sunil for 15 seconds [facility] 11:13 AM Balloon inflated @ 8 sunil for 15 seconds tsoummers 11:13 AM Balloon inflated @ 8 sunil for 20 seconds tsmmers 11:15 AM Time: 11:00LOC: 4 = Oriented but drowsy tsoummers 11:15 AM Time: 11:00 Patient comfortable and pain free: Yes tsoummers 11:15 AM Balloon catheter removed intact. [email or web address] 11:16 AM Recorded Pressure: Ao, HR=74, Condition=Condition 1 (Aorta) Ao 103/68/84 11:16 AM 2.25mm x 32mm Synergy drug-eluting stent across target lesion- successful Lot #[id number] tsoummers 11:17 AM HR=73 bpm, BKKD=860/70 mmhg, SpO2=98.0 %, Resp=15 B/min 11:17 AM Circumflex, Obtuse Marginal, Left Posterior Descending, and Left Posterolateral Coronary Arteries with 99 % stenosis. 11:18 AM Stent deployed @ 12 sunil for 30 seconds 11:19 AM Stent delivery system removed intact. 11:20 AM 2.5mm x 8mm Synergy drug-eluting stent across target lesion- successful Lot #[id number] [facility] 11:21 AM HR=73 bpm, RAZY=816/84 mmhg, SpO2=99.0 %, Resp=11 B/min 11:22 AM Stent deployed @ 12 sunil for 30 seconds 11:23 AM Stent balloon reinflated @ 18 sunil for 17 seconds [facility] 11:24 AM Stent delivery system removed intact. [facility] 11:24 AM Recorded Pressure: Ao, HR=74, Condition=Condition 1 (Aorta) Ao 108/69/87 11:24 AM Time: 11:24 Nitroglycerin 200 mcg Intracoronary Given by Aleyda Hein MD, FACC [facility] 11:25 AM Angiommx bag complete at this time. Second bag of Angiomax re-started for same infusion rate of 44 ml/hr. [facility] 11:26 AM HR=76 bpm, MJCR=386/76 mmhg, SpO2=96.0 %, Resp=18 B/min 11:26 AM Guide wire removed intact. [facility] 11:27 AM Guide catheter removed intact. [facility] 11:27 AM Bolus angiogram of right Femoral complete: 2 ml/sec for a total of 4 mls [facility] 11:28 AM Procedure completed at 11:28 [facility] 11:28 AM Time: 11:28 Brilinta 180 mg Orally Given by Briana Mccord RN [facility] 11:28 AM Did you address ROBERT flow and Dominance? Yes [facility] 11:29 AM Sign out completed: Radiation Dose 1596.36 mGy Fluoro Time: 15 Isovue 370 - 200ml contrast 312 ml given by Aleyda Hein MD, FACC. Complications: NoneCardiac Rehab Consult needed: YesConfirmed administered medications: Yes [facility] 11:29 AM Isovue 370 - 200ml,2 Bottle(s) used. [facility] 11:29 AM Sheath left in place to be pulled on floor/holding area [facility] 11:29 AM Estimated Blood Loss: less than 20cc mm 11:29 AM Post ECG NSR 11:29 AM Post Blood Pressure 120/76 11:30 AM Information taught Cardiac Cath and PCI 11:30 AM Education needs Procedure, Plan of Care, and Responsibilities of Patient in Care 11:30 AM Learning barriers :None 11:30 AM Education Methods Verbal 11:30 AM Education evaluation Able to repeat information [facility] 11:30 AM Site status No bleeding/hematoma - Rt Groin as reported by Divya Mckenzie RT (R) at 11:30 11:30 AM Opsite applied [facility] 11:30 AM Time: 11:15 Patient comfortable and pain free: Yes 11:31 AM Time: 11:15LOC: 4 = Oriented but drowsy 11:31 AM Plavix, Effient or Brilinta given Yes mm 11:31 AM Delay to floor No mm 11:31 AM Family placed in consult room. mm 11:31 AM Complications: None 11:31 AM Fluoro Time: 15 mm 11:31 AM Isovue 370 - 200ml contrast 312 ml given by Aleyda Hein MD, [facility]. 11:31 AM Radiation Dose 1596.36 mGy mm 11:31 AM HR=74 bpm, ZMAV=242/84 mmhg, LqZ5=700.0 %, Resp=15 B/min 11:32 AM Lesion found in Proximal RCA. Pre Stenosis: 40 Pre ROBERT Flow: oumm 11:32 AM Lesion found in Mid RCA. Pre Stenosis: 50 Pre ROBERT Flow: oumm 11:33 AM Lesion found in Distal RCA. Pre Stenosis: 30 Pre ROBERT Flow: oummers 11:33 AM Lesion found in Proximal LAD. Pre Stenosis: 40 Pre ROBERT Flow: oumm 11:33 AM Lesion found in LMCA. Pre Stenosis: 30 Pre ROBERT Flow: oummers 11:35 AM Conversation between Interventionalist and CT Surgeon. [facility] 11:35 AM Report given to Sallie BORDEN Pt taken to 2N Room #13. 11:35 tsoummers 11:35 AM 11:35 Post Pulses Bilateral DP & PT 2+ tsoummers 11:36 AM Lesion found in Proximal Circumflex. Pre Stenosis: 70 Pre ROBERT Flow: tsoummers 11:36 AM Lesion found in Ramus. Pre Stenosis: 30 Pre ROBERT Flow: tsoummers 11:36 AM Left Main Coronary Artery with 30% stenosis tsoummers 11:37 AM Proximal Left Anterior Descending Coronary Artery with 40% stenosis. If graft is supplying this territory, 0 % stenosis. tsoummers 11:37 AM Right Coronary, Right Posterior Descending Arteries with Right Posterolateral and Acute Marginal branches with 50 % stenosis. If graft is supplying this area, 0 % stenosis tsoummers 11:37 AM Ramus with 30% stenosis. If graft is supplying this area, 0 % stenosis tsoummers 11:37 AM Patient out of room: 11:37 tsoummers Complications Complication None Hemodynamics Pressures Site Systolic/A Wave Diastolic/V Wave Mean AO 114 79 94 AO 101 75 88 LV 96 11 11 LV 210 88 169 AO 99 75 87 AO 105 65 83 AO 118 73 93 AO 103 68 84 AO 108 69 87 Post Procedure Information Blood Pressure: 120/76 mmHg Rhythm: NSR Post procedural instructions were given Site Checks Time Location Status Staff Sheath In? Note 11:30 AM Rt Groin No bleeding/hematoma Divya Mckenzie RT (R) Pulses Time Site Pre-Procedure Post-Procedure Note Bilateral DP & PT 1+ Bilateral radial 2+ 11:35:00 AM Bilateral DP & PT 2+ Updated by Rosalina Haas RN on 05/07/2017 11:46:03 AM electronically signed on 05/07/2017 11:46:43 AM with status of Final
[2017-05-07] MEDS ORDERED: 0.9 % Sodium Chloride 1,000 ML IVC SCH (12:00)
--- NOTE | 2017-05-07 17:32 | Electrocardiograph Report ---
[place] [address] Test Date: 2017-05-07 Pat Name: Julian Escobar Department: 110 Room: 2N13 Gender: M Family Services Worker: MARY : 1955 Requested By: Aleyda Hein Order Number: [id number] Reading MD: Yuval Peres DO Measurements Intervals [place] Rate: 76 P: 41 MD: 192 QRS: -3 QRSD: 103 T: 53 QT: 407 QTc: 437 Interpretive Statements SINUS RHYTHM Electronically Signed On 05-07-2017 17:30:36 EST by Yuval Peres DO
[2017-05-07] MEDS ORDERED: Melatonin 3 MG TABLET PO PRN (18:06)
[2017-05-07] MEDS: Insulin DETEMIR 100 UNIT/ML X5UNITS SQ SCH (20:03)
[2017-05-07] MEDS: *HR* Ticagrelor 90 MG TABLET PO SCH (20:05)
[2017-05-08] MEDS: Famotidine 20 MG TABLET PO SCH (07:44)
[2017-05-08] MEDS: *HR* Ticagrelor 90 MG TABLET PO SCH (07:44)
[2017-05-08] MEDS: Aspirin 81 MG TAB.CHEW PO SCH (07:44)
[2017-05-08] MEDS: Insulin LISPRO 300 UNITS/3 ML VIAL SQ SCH ×2 (07:47→12:01)
[2017-05-08 07:54] LABS: Basophils % 0.6 %; Eosinophils # 0.1 K/mcL (0.0-0.6); Eosinophils % 2.5 %; Hematocrit 34.8 % (37.5-50.1); Hemoglobin 11.2 g/dL (12.9-16.9); Immature Granulocytes % 0.2 % (0-4); Lymphocytes % 18.8 %; Mean Corpuscular HGB Conc 32.2 g/dL (31.6-35.5); Mean Corpuscular Hemoglobin 27.9 pg (28.0-33.3); Mean Corpuscular Volume 86.6 fL (83.0-100.0); Mean Platelet Volume 10.8 fL (9.4-12.4); Monocytes # 0.5 K/mcL (0.0-1.3); Monocytes % 8.8 %; Neutrophils # 3.5 K/mcL (1.6-8.9); Platelet Count 109 K/mcL (140-400); Red Blood Count 4.02 M/mcL (4.19-5.50); Red Cell Distribution Width 14.6 % (11.5-14.5); Segmented Neutrophils % 69.1 %
[2017-05-08 08:47] LABS: BUN/Creatinine Ratio 14 (6-26); Blood Urea Nitrogen 13 mg/dL (8-23); Carbon Dioxide 27 mEq/L (23-29); Chloride 103 mEq/L (98-107); Glucose 182 mg/dL (70-105); Osmolality,Calculated 287 (280-300); Sodium 136 mEq/L (136-145); eGFR For African Americans > 60 (> 60); eGFR For Non-African Americans > 60 (> 60)
[2017-05-08 11:26] VITALS: BP 107/73
[2017-05-08] MEDS ORDERED: Acetaminophen 325 MG TABLET PO PRN (11:34)
--- NOTE | 2017-05-08 12:36 | Cardiology Progress Note ---
Date of Encounter: 05/08/17 Time of Encounter: 12:30 Assessment and Plan (1) ACS (acute coronary syndrome) Current Visit: Yes Status: Acute sp PCI, stable for discharge. Importance of DAPT discussed with patient repeatedly. BB, statin. (2) HTN (hypertension) Current Visit: Yes Status: Chronic B/p acceptable. Qualifiers: Hypertension type: essential hypertension Qualified Code(s): I10 - Essential (primary) hypertension Discussion w patient/family: The assessment and plan as outlined above was discussed with the patient and/or family members who expressed understanding and agreement. All questions were answered. Thank you for involving us in the care of your patient. Please call with any questions. Subjective Interval history: Patient felt well since [facility]. No access site discomfort, chest/jaw/arm discomfort, or dyspnea. Objective Vital Signs, Last 4 Hours Temp Pulse Resp BP Pulse Ox 05/08/17 11:23 98.3 F 93 16 107/73 91 General: Conversant HEENT: Atraumatic Neck: No JVD Cardiac: Reg Rate and Rhythm Lungs: Normal Breath Sounds Neuro: Alert and responsive Abdomen: Soft Skin: No rashes noted on visualized skin Musculoskeletal: No Chest Wall Tenderness Extremities: No Edema Results 05/08/17 07:35 05/08/17 07:35 Lab Results 05/08/17 05/08/17 05/08/17 07:35 07:35 07:35 WBC 5.1 Hgb 11.2 L Hct 34.8 L Plt Count 109 L Sodium 136 Potassium 4.0 Chloride 103 Carbon Dioxide 27 BUN 13 Creatinine 0.95 Glucose 182 H Calcium 9.0 Troponin I 1.32 H* Consult Discharge Plan - Plan Referrals: Angela Bowden, SEWING MACHINE REPAIRER HELPER [Primary Care Provider] -
--- NOTE | 2017-05-08 13:21 | Discharge Summary ---
Date of Encounter: 05/08/17 Time of Encounter: 13:30 - Discharge Diagnosis (1) NSTEMI (non-ST elevated myocardial infarction) Priority: Primary Status: Resolved (2) Coronary artery disease Priority: Secondary Status: Chronic Qualifiers: Coronary Disease-Associated Artery/Lesion type: [place] artery [place] vs. transplanted heart: [place] heart Associated angina: with unstable angina Qualified Code(s): I25.110 - Atherosclerotic heart disease of [place] coronary artery with unstable angina pectoris (3) DM (diabetes mellitus) Priority: Secondary Status: Chronic Qualifiers: Diabetes mellitus type: type 2 Diabetes mellitus complication status: with hyperglycemia Diabetes mellitus social worker psychiatric insulin use: with social worker psychiatric use Qualified Code(s): E11.65 - Type 2 diabetes mellitus with hyperglycemia; Z79.4 - applications developer (current) use of insulin; Z79.4 - applications developer (current) use of insulin ; Z79.4 - applications developer (current) use of insulin; Z79.4 - [facility] (current) use of insulin (4) HTN (hypertension) Priority: Secondary Status: Chronic Qualifiers: Hypertension type: essential hypertension Qualified Code(s): I10 - Essential (primary) hypertension (5) HLD (hyperlipidemia) Priority: Secondary Status: Chronic Qualifiers: Hyperlipidemia type: mixed hyperlipidemia Qualified Code(s): E78.2 - Mixed hyperlipidemia (6) Insomnia Priority: Secondary Status: Chronic Qualifiers: Insomnia type: primary Qualified Code(s): F51.01 - Primary insomnia - Discharge Medications Prescriptions: Atorvastatin [Lipitor] 80 mg PO HS #30 tablet Ticagrelor [Brilinta] 90 mg PO BID #60 tablet Home Medications: Exenatide Microspheres [Bydureon] 2 mg SQ QWEEK 05/06/17 [History] Insulin Glargine,Hum.rec.anlog [Lantus Solostar] 35 unit SQ HS 05/06/17 [History ] Insulin LISPRO [Humalog Kwikpen U-100] 12 unit SQ TIDWM 05/06/17 [History] Lisinopril [Zestril] 5 mg PO DAILY 05/06/17 [History] Metoprolol [Lopressor] 25 mg PO BID 05/06/17 [History] Ranitidine HCl [Zantac] 150 mg PO BID 05/06/17 [History] glipiZIDE [Glipizide] 10 mg PO BID 05/06/17 [History] Aspirin 81 mg PO DAILY tab.chew 05/08/17 [Rx] Atorvastatin [Lipitor] 80 mg PO HS #30 tablet 05/08/17 [Rx] Metformin HCl [Glucophage] 1,000 mg PO BIDWM #0 05/08/17 [Rx] Ticagrelor [Brilinta] 90 mg PO BID #60 tablet 05/08/17 [Rx] Allergies/Adverse Reactions: 3 Allergy/AdvReac Type Severity Reaction Status Date / Time No Known Drug Allergies Allergy See Verified 05/06/17 13:46 Comments Procedures/tests Complete & Pending: Procedures Performed prior 72 hours Category Date Time Status CL Cardiac Catheterization [CL] Routine Skeins Yarn Examiner 05/07/17 09:38 Completed ECG 12 lead ECG [ECG] AM 0600 Y 05/08/17 06:00 Ordered ECG 12 lead ECG [ECG] Stat Y 05/07/17 11:47 Completed EV echocardiogram Routine Y 05/07/17 09:46 Completed Date of admission: 05/06/17 16:52 Primary care physician: Angela Bowden CNP Consults: 05/07/17 11:47 Consult to Cardiac Rehabilitation-Phase1 [CONS] Routine Comment: Reason for Consult: post op PCI Call Completed: Yes Discharging clinician: Haja Mario Anticipated date of discharge: 05/08/17 - Patient Status Disposition: Home, Self-Care Condition: Fair Functional capacity at discharge: independent ambulation Overall status at discharge: patient is progressing back to baseline - Discharge Instructions Instructions: Atorvastatin (By mouth), Ticagrelor (By mouth) Follow Up With: Angela Bowden CNP [Primary Care Provider] - - Diet and Activity Activity: increase activity as tolerated Diet: diabetic diet, low fat, low cholesterol, low salt diet Hospital course: Mr. Escobar is a 61 year old male with hx of HTN and HLD presented to ED with complaints of chest pressure radiating to the back and scapula. Initial troponin was mildly elevated. He was subsequently admitted for further evaluation and treatment. Mr Escobar was admitted to [facility]. He was started on IV heparin and serial troponins ordered. 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 He had 3 stents placed (LOUISE). He tolerated well and was taken to 2 N after procedure due to sheath removal. He had an uneventful night. Today he is afebrile with stable vitals. He is cleared for discharge. He needs to remain on ASA/Brlinta at this time. He will follow up in PCP and cardiology office. - Time Spent with Patient Total time spent providing and/or coordinating discharge services: 40min - Constitutional Vitals: Temp Pulse Resp BP Pulse Ox 98.3 F 93 16 107/73 91 05/08/17 11:23 05/08/17 11:23 05/08/17 11:23 05/08/17 11:23 05/08/17 11:23 General appearance: Present: cooperative, A&O X 3, answers questions appropriately - Head Head exam: Present: normocephalic - Eye Eye exam: Present: conjuntiva pink - ENT ENT exam: Present: mucous membranes dry - Respiratory Respiratory exam: Present: CTAB. Absent: rales, rhonchi, wheezes - Cardiovascular Cardiovascular exam: Present: RRR. Absent: tachycardia - GI/Abdominal GI/Abdominal exam: Present: soft. Absent: tenderness - Extremities Exam Extremities exam: Present: warm. Absent: tenderness - Neurological Exam Neurological exam: Present: alert, oriented X3, no focal deficits - Skin Skin exam: Present: dry, warm. Absent: rash
== END 2017-05-08 15:05 | disposition home or self-care (01) | DRG 174 ==
LOC: 2NENU 13:10 → EMEROO 13:10 → 2NENU 17:02 → 2NNU 05-07 11:53
PROVIDERS: ADMIT Nurse Practitioner; ATTEND Internal Medicine

== ENCOUNTER 2017-06-14 18:53 | Observation (INO) ==
[2017-06-14 19:35] LABS: Bilirubin,Urine Negative (Negative); Blood,Urine Negative (Negative); Clarity,Urine Cloudy (Clear); Color,Urine Yellow (Yellow); Glucose,Urine (UA) Normal (Normal); Ketones,Urine Negative (Negative); Leukocyte Esterase,Urine Negative (Negative); Nitrite,Urine Negative (Negative); PH,Urine 5.5 pH Units (5.0-8.0); Protein,Urine Trace mg/dL (Neg-Trace); Urobilinogen,Urine Normal (Normal)
[2017-06-14 19:38] LABS: Bacteria,Urine None Seen per hpf (None-Few); Hyaline Casts,Urine None Seen per lpf (None-Few); RBC,Urine 0-3 per hpf (0-3); Squamous Epithelial Cell,Urine Many per lpf (None-Few)
--- NOTE | 2017-06-14 19:46 | Emergency Department Note ---
Disposition Clinical Impression: Chest pain Qualifiers: Chest pain type: unspecified Qualified Code(s): R07.9 - Chest pain, unspecified Disposition: Admitted As Inpatient Condition: Fair Referrals: Angela Bowden CNP [Primary Care Provider] - Forms: ED Satisfaction Letter Time of Disposition: 21:39 General Adult HPI - General Chief complaint: ED Chest Pain Stated complaint: flank pain/CP Time Seen by Provider: 06/14/17 19:17 Source: patient Mode of arrival: ambulatory Limitations: no limitations Nursing Notes Reviewed: Yes Vital Signs Reviewed: Yes - History of Present Illness HPI Narrative: Patient is a 61-year-old male with a past medical history of DE and diabetes presenting to the emergency department for the complaint of right-sided flank pain that started yesterday evening. Patient describes the pain as right-sided, dull, 5/10 with no associated symptoms. Patient denies any exacerbating or relieving factors. Patient's states he was recently here last month and treated with coronary angiography and 3 stent placement. Pain Scale: 6 - Related Data Home Medications Medication Instructions Recorded Confirmed Exenatide Microspheres [Bydureon] 2 mg SQ QWEEK 05/06/17 05/25/17 Insulin Glargine,Hum.rec.anlog 40 unit SQ HS 05/06/17 05/25/17 [Lantus Solostar] Insulin LISPRO [Humalog Kwikpen 12 unit SQ TIDWM 05/06/17 05/25/17 U-100] Lisinopril [Zestril] 5 mg PO DAILY 05/06/17 05/25/17 Metoprolol [Lopressor] 25 mg PO BID 05/06/17 05/25/17 Ranitidine HCl [Zantac] 150 mg PO BID 05/06/17 05/25/17 glipiZIDE [Glipizide] 10 mg PO BID 05/06/17 05/25/17 Exenatide Microspheres [Bydureon 2 mg SQ WD 05/25/17 Pen] Ketoconazole 2% CRM [Nizoral Cream] 1 appl TP DAILY 05/25/17 05/25/17 Tramadol HCl [Ultram] 50 mg PO QID PRN 05/25/17 05/25/17 Previous Rx's Medication Instructions Recorded Aspirin 81 mg PO DAILY tab.chew 05/08/17 Atorvastatin [Lipitor] 80 mg PO HS #30 tablet 05/08/17 Metformin HCl [Glucophage] 1,000 mg PO BIDWM #0 05/08/17 Ticagrelor [Brilinta] 90 mg PO BID #60 tablet 05/08/17 Allergies Allergy/AdvReac Type Severity Reaction Status Date / Time No Known Drug Allergies Allergy See Verified 05/06/17 13:46 Comments All systems ED: reviewed and negative except as stated. Review of Systems: As Per HPI Constitutional: Denies: fever, chills Cardiovascular: Reports: chest pain Respiratory: Denies: cough, dyspnea Gastrointestinal: Denies: abdominal pain, nausea, vomiting Musculoskeletal: Denies: back pain, neck pain Neurological: Denies: headache Past Medical History - Past Medical History Attestation: Yes The following information was validated with the patient. Medical history: Reports: coronary artery disease, diabetes, GERD, hyperlipidemia, hypertension, migraine, myocardial infarction Surgical history: Reports: no surgical history Psychiatric history: Reports: no psych history - Social History Smoking Status: Light tobacco smoker Smokeless Tobacco Status: No Alcohol use: Reports: none Drug use: Reports: none Physical Exam CONSTITUTIONAL: Well-appearing; well-nourished; A&O X 3, in no apparent distress HEAD: Normocephalic; atraumatic EYES: PERRL, no scleral icterus NOSE: The nose is normal in appearance without rhinorrhea NECK: No JVD or distended neck veins RESP: Normal chest excursion with respiration; breath sounds clear and equal bilaterally; no wheezes, rhonchi, or rales CARD: Regular rhythm, without murmurs, rub or gallop ABD: Non-distended; non-tender, soft, without rigidity, rebound or guarding,no pulsatile mass CHEST: No pain with palpation SKIN: Normal for age and race; warm and dry without diaphoresis ; no apparent lesions EXTREMITIES: Pulses are 2 plus and equal times 4 extremities, no peripheral edema or calf muscle pain - General Limitations: no limitations Course Course Narrative: Patient was worked up for chest pain. His lab results were essentially unremarkable. EKG was normal with no acute ischemic changes. Patient was given aspirin he will be admitted to the hospital for his chest pain due to his recent stent placement one month ago. Vital Signs Temperature 98.1 F 06/14/17 18:54 Pulse Rate 104 06/14/17 18:54 Respiratory Rate 18 06/14/17 18:54 Blood Pressure 153/76 06/14/17 18:54 O2 Sat by Pulse Oximetry 98 06/14/17 18:54 Temperature 98.1 F 06/14/17 18:54 Pulse Rate 88 06/14/17 21:29 Respiratory Rate 18 06/14/17 21:29 Blood Pressure 115/66 06/14/17 21:29 O2 Sat by Pulse Oximetry 98 06/14/17 21:29 Oxygen Delivery Oxygen Delivery Room Air Medical Decision Making - Medical Records Medical records reviewed: Yes I reviewed the patient's medical records. - Lab Data Lab results reviewed: Yes I reviewed the patient's lab results. Result diagrams: 06/14/17 20:04 06/14/17 20:04 Lab Results 06/14/17 06/14/17 06/14/17 Range/Units 19:00 20:04 20:04 WBC 5.4 (4.3-11.1) K/mcL RBC 3.89 L (4.19-5.50) M/mcL Hgb 10.6 L (12.9-16.9) g/dL Hct 33.6 L (37.5-50.1) % MCV 86.4 (83.0-100.0) fL MCH 27.2 L (28.0-33.3) pg MCHC 31.5 L (31.6-35.5) g/dL RDW 15.1 H (11.5-14.5) % Plt Count 139 L (140-400) K/mcL MPV 10.0 (9.4-12.4) fL Immature Gran % 0.2 (0-4) % Seg Neutrophils % 62.1 % Lymphocytes % 26.0 % Monocytes % 9.1 % Eosinophils % 1.7 % Basophils % 0.9 % Neutrophils # 3.4 (1.6-8.9) K/mcL Lymphocytes # 1.4 (0.6-4.6) K/mcL Monocytes # 0.5 (0.0-1.3) K/mcL Eosinophils # 0.1 (0.0-0.6) K/mcL Basophils # 0.1 (0.0-0.2) K/mcL Sodium 136 (136-145) mEq/L Potassium 4.5 (3.5-5.1) mEq/L Chloride 102 (98-107) mEq/L Carbon Dioxide 26 (23-29) mEq/L BUN 15 (8-23) mg/dL Creatinine 1.17 (0.70-1.30) mg/dL Est GFR ( Amer) > 60 (> 60) Est GFR (Non-Af Amer) > 60 (> 60) BUN/Creatinine Ratio 13 (6-26) Glucose 198 H (70-105) mg/dL Calculated Osmolality 288 (280-300) Calcium 9.6 (8.6-10.3) mg/dL Total Bilirubin 0.6 (0.3-1.0) mg/dL Direct Bilirubin 0.1 (0.0-0.2) mg/dL Indirect Bilirubin 0.5 (0.0-1.2) mg/dL AST 25 (13-39) Units/L ALT 28 (7-52) Units/L Alkaline Phosphatase 85 (34-104) Units/L Troponin I < 0.03 (< 0.04) ng/mL Serum Total Protein 7.4 (6.4-8.9) g/dL Albumin 3.8 (3.5-5.7) g/dL Globulin 3.6 H (2.4-3.5) g/dL Albumin/Globulin Ratio 1.1 (1.1-2.2) Lipase 66 (11-82) Units/L Urine Color Yellow (Yellow) Urine Clarity Cloudy A (Clear) Urine pH 5.5 (5.0-8.0) pH Units Ur Specific [place] 1.020 (1.010-1.025) Urine Protein Trace (Neg-Trace) mg/dL Urine Glucose (UA) Normal (Normal) mg/dL Urine Ketones Negative (Negative) mg/dL Urine Blood Negative (Negative) Urine Nitrite Negative (Negative) Urine Bilirubin Negative (Negative) Urine Urobilinogen Normal (Normal) mg/dL Ur Leukocyte Esterase Negative (Negative) Urine Microscopic RBC 0-3 (0-3) per hpf Urine Microscopic WBC 5-15 H (0-3) per hpf Ur Squamous Epith Cells Many H (None-Few) per lpf Urine Bacteria None Seen (None-Few) per hpf Hyaline Casts None Seen (None-Few) per lpf Urine Sperm Present - Radiology Data Radiology results reviewed: Yes I reviewed the patient's radiology results. Chest X-Ray 06/14/17 18:58 IMPRESSION: Normal chest x-ray D/ / Rayshawn Cheney MD / Rayshawn Cheney MD Interpreting Provider: Rayshawn Cheney MD - EKG Data EKG #1 EKG attestation: Yes I reviewed and interpreted this EKG. EKG results narrative: EKG done at 18:58. EKG was sinus tachycardia at a rate of 100 bpm. Otherwise normal EKG.
[2017-06-14 19:53] LABS: Sperm,Urine Present
[2017-06-14 20:17] LABS: Basophils # 0.1 K/mcL (0.0-0.2); Basophils % 0.9 %; Eosinophils # 0.1 K/mcL (0.0-0.6); Eosinophils % 1.7 %; Hematocrit 33.6 % (37.5-50.1); Hemoglobin 10.6 g/dL (12.9-16.9); Immature Granulocytes % 0.2 % (0-4); Lymphocytes # 1.4 K/mcL (0.6-4.6); Mean Corpuscular HGB Conc 31.5 g/dL (31.6-35.5); Mean Corpuscular Hemoglobin 27.2 pg (28.0-33.3); Mean Corpuscular Volume 86.4 fL (83.0-100.0); Monocytes # 0.5 K/mcL (0.0-1.3); Monocytes % 9.1 %; Neutrophils # 3.4 K/mcL (1.6-8.9); Platelet Count 139 K/mcL (140-400); Red Blood Count 3.89 M/mcL (4.19-5.50); Red Cell Distribution Width 15.1 % (11.5-14.5); Segmented Neutrophils % 62.1 %
--- NOTE | 2017-06-14 20:37 | Emergency Department Note ---
START Narrative - START START: I examined this patient and my medical decision-making was reviewed with the SUBSTANCE ADDICTION COORDINATOR/PA/Advanced Practice Nurse/Resident Physician. I agree with the documented findings, disposition and treatment plan as described except to the extent set forth below. ED attending note: Patient seen with emergency medicine resident Dr. Deandre Butler. We independently evaluated the patient. We independently had face-to- face contact with the patient. Please see a copy of his note for details of the history and physical, evaluation, management and disposition of this emergency Department patient. Briefly: 61-year-old male history of coronary artery disease with 3 prior stents presents the emergency department with right flank pain right-sided chest pain shortness of breath and dyspnea on exertion. No prior history of kidney stones. Denies hematuria or dysuria. No fever chills or sputum. No CVAT. Patient getting urinalysis chest x-ray troponin. EKG showed no acute ischemic changes. Our plan is that the patient will likely be admitted for acute coronary syndrome and chest pain observation. Disposition pending
[2017-06-14 20:45] LABS: Troponin I < 0.03 ng/mL (< 0.04)
[2017-06-14 20:46] LABS: Alanine Aminotransferase 28 Units/L (7-52); Albumin 3.8 g/dL (3.5-5.7); Albumin/Globulin Ratio 1.1 (1.1-2.2); Alkaline Phosphatase 85 Units/L (34-104); Aspartate Amino Transferase 25 Units/L (13-39); BUN/Creatinine Ratio 13 (6-26); Bilirubin,Direct 0.1 mg/dL (0.0-0.2); Bilirubin,Indirect 0.5 mg/dL (0.0-1.2); Bilirubin,Total 0.6 mg/dL (0.3-1.0); Blood Urea Nitrogen 15 mg/dL (8-23); Calcium 9.6 mg/dL (8.6-10.3); Carbon Dioxide 26 mEq/L (23-29); Chloride 102 mEq/L (98-107); Globulin 3.6 g/dL (2.4-3.5); Glucose 198 mg/dL (70-105); Lipase 66 Units/L (11-82); Osmolality,Calculated 288 (280-300); Potassium 4.5 mEq/L (3.5-5.1); Sodium 136 mEq/L (136-145); Total Protein 7.4 g/dL (6.4-8.9); eGFR For African Americans > 60 (> 60); eGFR For Non-African Americans > 60 (> 60)
[2017-06-14] MEDS ORDERED: Aspirin 81 MG TAB.CHEW PO ONE (21:22)
[2017-06-14] MEDS ORDERED: Naloxone 0.4 MG/ML INJ IVP PRN (21:59)
[2017-06-14] MEDS ORDERED: Acetaminophen 325 MG TABLET PO PRN (21:59)
[2017-06-14] MEDS ORDERED: traMADol 50 MG TABLET PO PRN (22:04)
[2017-06-14] MEDS ORDERED: Dextrose Gel 15 GM/37.5 ML TUBE PO PRN ×2 (22:05)
[2017-06-14] MEDS ORDERED: D5% in Water 1,000 ML IVC PRN (22:05)
[2017-06-14] MEDS ORDERED: *HR* Dextrose 50 % in Water (Syg) 50 ML SYRINGE IVP PRN (22:05)
--- NOTE | 2017-06-14 22:22 | Internal Med History&Physical ---
<Tod Villalba - Last Filed: 06/14/17 22:31> Date of Encounter: 06/14/17 Time of Encounter: 20:50 Assessment and Plan (1) Coronary artery disease Current visit: Yes Status: Chronic Patient has been having chest pain for the past 2 days. No diaphoresis, dyspnea , nausea, or worsening with exertion Hx of NSTEMI with 3 LOUISE placed on 05/07/17 - on Brilinta and ASA ECG shows no acute ischemic changes. Initial troponin negative Patient history readmitted for further observation Continuous cardiac monitoring, trend troponins 3, continue home meds, and cardiology consult Qualifiers: Coronary Disease-Associated Artery/Lesion type: [place] artery [place] vs. transplanted heart: [place] heart Associated angina: with unstable angina Qualified Code(s): I25.110 - Atherosclerotic heart disease of [place] coronary artery with unstable angina pectoris (2) HTN (hypertension) Current visit: Yes Status: Chronic Normotensive. Continue home meds Qualifiers: Hypertension type: essential hypertension Qualified Code(s): I10 - Essential (primary) hypertension (3) HLD (hyperlipidemia) Current visit: Yes Status: Chronic Continue statin Qualifiers: Hyperlipidemia type: mixed hyperlipidemia Qualified Code(s): E78.2 - Mixed hyperlipidemia (4) DM (diabetes mellitus) Current visit: Yes Status: Chronic Hold metformin and glipizide. Continue basal insulin 40 units. Sliding scale insulin with meals Qualifiers: Diabetes mellitus type: type 2 Diabetes mellitus [facility] insulin use: with [facility] use Diabetes mellitus complication status: with hyperglycemia Qualified Code(s): E11.65 - Type 2 diabetes mellitus with hyperglycemia; Z79.4 - senior care (current) use of insulin; Z79.4 - terminal gauger (current) use of insulin; Z79.4 - terminal gauger (current) use of insulin; Z79.4 - senior care (current ) use of insulin (5) Right flank pain Current visit: Yes Status: Acute 2 day history of right sided pain along mid-axillary line of ribs Unlikely renal stone with normal UA Patient reports this pain was worsened after exercising this morning - likely musculoskeletal in nature (6) DVT prophylaxis Current visit: Yes Status: Acute Subq heparin Internal Medicine - H&P: HPI Chief complaint: Flank/chest pain Admitted From: Emergency Dept History of present illness: Mr. Escobar is a 61 year old male with PMH of CAD s/p 3 LOUISE placement on 05/07/17, diabetes, hypertension, and migraines, presented to the emergency department with chief complaint of right side/flank pain that began yesterday morning and is described as a dull constant ache. He said this is associated with some pain in his mid back and right shoulder blade. He denies any dysuria, hematuria , or changes with urination or bowel movements. He also mentions that he has had some intermittent right-sided chest pain, however he is not having any at this time. He states it is not associated with diaphoresis, dyspnea, palpitations, nausea, or has an exertional component to it. He went to cardiac rehab this morning and reports his side pain worsened, but not his chest pain. With his history of 3 stents placed 1 month ago, he is admitted for overnight evaluation. He denies having any other symptoms. Denies fevers, chills, syncope, lightheadedness, focal neuro deficits, dyspnea, cough, abdominal pain, nausea, vomiting, change in bowels, or leg pain/swelling. Past Med Surg Social Fam HX - Past Medical History Medical history: coronary artery disease, diabetes, GERD, hyperlipidemia, hypertension, migraine, myocardial infarction Psychiatric history: no psych history - Past Surgical History Surgical History: no surgical history - Social History Smoking Status: Light tobacco smoker Smokeless Tobacco Status: No Alcohol use: none Drug use: none - Family History Brother Hx Family Cardiac Disorders: Yes Hx Family Respiratory Disorders: No Hx Family Cancer: No Hx Family Endocrine Disorder: Yes Hx Family Neurologic Disorders: No Father Living Status: Hx Family Cardiac Disorders: Yes (mother,brotyher, sister, daughter) Hx Family Respiratory Disorders: No Hx Family Cancer: No Hx Family GI Disorders: No Hx Family Endocrine Disorder: Yes (sister,brothers x2) Hx Family Neuromuscular Disorders: No Hx Family Neurologic Disorders: No Hx Family HEENT Disorders: No Hx Family Autoimmune Disorders: No Internal Medicine - H&P: Meds Insulin Glargine,Hum.rec.anlog [Lantus Solostar] 40 unit SQ HS 05/06/17 [History ] Insulin LISPRO [Humalog Kwikpen U-100] 12 unit SQ TIDWM 05/06/17 [History] Lisinopril [Zestril] 5 mg PO DAILY 05/06/17 [History] Metoprolol [Lopressor] 25 mg PO BID 05/06/17 [History] Ranitidine HCl [Zantac] 150 mg PO BID 05/06/17 [History] glipiZIDE [Glipizide] 10 mg PO BID 05/06/17 [History] Aspirin 81 mg PO DAILY tab.chew 05/08/17 [Rx] Atorvastatin [Lipitor] 80 mg PO HS #30 tablet 05/08/17 [Rx] Metformin HCl [Glucophage] 1,000 mg PO BIDWM #0 05/08/17 [Rx] Ticagrelor [Brilinta] 90 mg PO BID #60 tablet 05/08/17 [Rx] Exenatide Microspheres [Bydureon Pen] 2 mg SQ Q7D 05/25/17 [History] Tramadol HCl [Ultram] 50 mg PO QID PRN 05/25/17 [History] 3 Allergy/AdvReac Type Severity Reaction Status Date / Time No Known Drug Allergies Allergy See Verified 05/06/17 13:46 Comments All Systems PM: A 10-system review of systems was performed and is negative for pertinent findings except as documented above in the HPI. - Constitutional Vitals: Temp Pulse Resp BP Pulse Ox 98.1 F 88 18 115/66 98 06/14/17 18:54 06/14/17 21:29 06/14/17 21:29 06/14/17 21:29 06/14/17 21:29 General appearance: Present: A&O X 3, no acute distress, answers questions appropriately - Head Head exam: Present: atraumatic, normocephalic - Eye Eye exam: Present: EOMI, PERRL, conjuntiva pink, sclera anicteric Pupils: Present: PERRL - Neck Neck exam general surgery: Present: supple, trachea midline. Absent: lymphadenopathy - Respiratory Respiratory exam: Present: CTAB. Absent: accessory muscle use, rales, rhonchi, wheezes - Cardiovascular Cardiovascular exam: Present: RRR, +S1, +S2. Absent: diastolic murmur, systolic murmur - GI/Abdominal GI/Abdominal exam: Present: normal bowel sounds, soft, no peritoneal signs. Absent: distended, tenderness - Extremities Exam Extremities exam: Present: warm, radial pulses palpable and symmetrical. Absent : calf tenderness, cyanotic, pedal edema - Neurological Exam Neurological exam: Present: alert, oriented X3, no focal deficits. Absent: facial droop, speech deficit - Skin Skin exam: Present: dry, intact Internal Med - H&P Results - Labs CBC & Chem 7: 06/14/17 20:04 06/14/17 20:04 <Zahra Garcia - Last Filed: 06/14/17 23:19> Date of Encounter: 06/14/17 Internal Medicine - H&P: HPI History of present illness: Mr. Escobar is a 61 year old male All Systems PM: A 10-system review of systems was performed and is negative for pertinent findings except as documented above in the HPI. - Constitutional Vitals: Temp Pulse Resp BP Pulse Ox 97.7 F 85 16 135/80 94 06/14/17 23:02 06/14/17 23:02 06/14/17 23:02 06/14/17 23:02 06/14/17 23:02 Internal Med - H&P Results - Labs CBC & Chem 7: 06/14/17 20:04 06/14/17 20:04 - Attending Attestation I have seen and examined this patient independently. I have discussed with resident physician Dr. Villalba regarding the management plan. Agree with the documentation.
[2017-06-14] MEDS: *HR* Heparin 5,000 UNIT/ML VIAL SQ SCH (23:57)
[2017-06-14] MEDS: Insulin DETEMIR 100 UNIT/ML X5UNITS SQ SCH (23:58)
[2017-06-15 03:22] LABS: BUN/Creatinine Ratio 15 (6-26); Blood Urea Nitrogen 15 mg/dL (8-23); Carbon Dioxide 25 mEq/L (23-29); Chloride 104 mEq/L (98-107); Glucose 206 mg/dL (70-105); Osmolality,Calculated 295 (280-300); Potassium 4.1 mEq/L (3.5-5.1); Sodium 139 mEq/L (136-145); eGFR For African Americans > 60 (> 60); eGFR For Non-African Americans > 60 (> 60)
[2017-06-15 03:23] LABS: Hematocrit 29.9 % (37.5-50.1); Hemoglobin 9.8 g/dL (12.9-16.9); Mean Corpuscular HGB Conc 32.8 g/dL (31.6-35.5); Mean Corpuscular Hemoglobin 27.6 pg (28.0-33.3); Mean Corpuscular Volume 84.2 fL (83.0-100.0); Mean Platelet Volume 10.6 fL (9.4-12.4); Platelet Count 122 K/mcL (140-400); Red Blood Count 3.55 M/mcL (4.19-5.50); Red Cell Distribution Width 15.1 % (11.5-14.5)
[2017-06-15] MEDS: *HR* Heparin 5,000 UNIT/ML VIAL SQ SCH ×3 (05:09→22:32)
[2017-06-15] MEDS: Insulin LISPRO 300 UNITS/3 ML VIAL SQ SCH ×3 (08:40→18:15)
[2017-06-15] MEDS: Famotidine 20 MG TABLET PO SCH ×2 (08:42→20:42)
[2017-06-15] MEDS: *HR* Ticagrelor 90 MG TABLET PO SCH ×2 (08:42→20:42)
[2017-06-15] MEDS: Aspirin 81 MG TAB.CHEW PO SCH (08:42)
--- NOTE | 2017-06-15 10:24 | Cardiology Consult Note ---
Date of Encounter: 06/15/17 Time of Encounter: 10:23 Assessment and Plan (1) Right flank pain Current Visit: Yes Status: Acute Presented with right flank pain that was dull, constant, started 2 days ago, resolved overnight, Reports radiation to back and bilateral shoulder blades. Denies chest pain. Not similar to prior anginal equivalent. Troponin negative, no EKG changes. Check limited TTE to re-evaluate EF/wall motion. Further management of flank pain per primary team. (2) Coronary artery disease Current Visit: Yes Status: Chronic Recent NSTEMI 04/2017 with LOUISE to 1st OM and 2nd Diagonal. Troponin negative x 3, no EKG changes. Reports compliance with DAPT (ASA and Brilinta). Continue BB and statin. TTE 05/07/17 EF 60-65%. Recheck limited TTE. If no significant findings on limited TTE, no further cardiac work-up will be warranted and anticipate sign off. Will further discuss with Dr. Bautista. Qualifiers: Coronary Disease-Associated Artery/Lesion type: [place] artery [place] vs. transplanted heart: [place] heart Associated angina: with unstable angina Qualified Code(s): I25.110 - Atherosclerotic heart disease of [place] coronary artery with unstable angina pectoris Discussion w patient/family: The assessment and plan as outlined above was discussed with the patient and/or family members who expressed understanding and agreement. All questions were answered. Thank you for involving us in the care of your patient. Please call with any questions. I will discuss all the above with Dr. Bautista and make changes as necessary. History of Present Illness Consult date: 06/15/17 Requesting physician: Zahra Garcia Consult reason: CAD, flank pain Chief complaint: right flank pain History of present illness: Mr. Escobar is a 61 year old male with PMH of CAD, recent NSTEMI 04/2017 s/p PCI diagonal and OM, HTN, dyslipidemia. He presented to the ED with chief complaint of right side/flank pain that began 2 days ago, described as a dull constant ache. He said this is associated with some pain in his mid back and bilateral shoulder blades. He denies chest pain or worsening dyspnea. He states this is different than his anginal pain with NSTEMI last month. Troponins negative x 3. Cardiology consulted for further recommendations. Per pt, Tylenol helped the pain. Pain resolved overnight and he is currently pain free. Reports compliance with ASA and Brilinta. EKG no ischemic changes. Prior CV testing: [facility] 05/07/17 Impressions: Triple vessel coronary artery disease. The left ventricle is normal and has normal contractility EF 55% Patient had successful PTCA/Drug-Eluting Stent placement in the 1st OM. Patient had successful PTCA/ Drug-Eluting Stent placement in the 2nd Diagonal. Remaining lesions: 40% pRCA, 50% mRCA, 30% distal RCA, 30% LMCA, 40% pLAD, 30% Ramus. TTE 05/07/17: LVEF 60-65%. No segmental dysfunction. No evidence of pulmonary hypertension. No significant valvular dysfunction. Past Med Surg Social Fam HX - Past Medical History Medical history: coronary artery disease, diabetes, GERD, hyperlipidemia, hypertension, migraine, myocardial infarction Psychiatric history: no psych history - Past Surgical History Surgical History: angioplasty/stent - Social History Smoking Status: Former smoker Smokeless Tobacco Status: No Alcohol use: none Drug use: none - Family History Brother Hx Family Cardiac Disorders: Yes Hx Family Respiratory Disorders: No Hx Family Cancer: No Hx Family Endocrine Disorder: Yes Hx Family Neurologic Disorders: No Father Living Status: Hx Family Cardiac Disorders: Yes (mother,brotyher, sister, daughter) Hx Family Respiratory Disorders: No Hx Family Cancer: No Hx Family GI Disorders: No Hx Family Endocrine Disorder: Yes (sister,brothers x2) Hx Family Neuromuscular Disorders: No Hx Family Neurologic Disorders: No Hx Family HEENT Disorders: No Hx Family Autoimmune Disorders: No Medications and Allergies Insulin Glargine,Hum.rec.anlog [Lantus Solostar] 40 unit SQ HS 05/06/17 [History ] Insulin LISPRO [Humalog Kwikpen U-100] 12 unit SQ TIDWM 05/06/17 [History] Lisinopril [Zestril] 5 mg PO DAILY 05/06/17 [History] Metoprolol [Lopressor] 25 mg PO BID 05/06/17 [History] Ranitidine HCl [Zantac] 150 mg PO BID 05/06/17 [History] glipiZIDE [Glipizide] 10 mg PO BID 05/06/17 [History] Aspirin 81 mg PO DAILY tab.chew 05/08/17 [Rx] Atorvastatin [Lipitor] 80 mg PO HS #30 tablet 05/08/17 [Rx] Metformin HCl [Glucophage] 1,000 mg PO BIDWM #0 05/08/17 [Rx] Ticagrelor [Brilinta] 90 mg PO BID #60 tablet 05/08/17 [Rx] Exenatide Microspheres [Bydureon Pen] 2 mg SQ Q7D 05/25/17 [History] Tramadol HCl [Ultram] 50 mg PO QID PRN 05/25/17 [History] 3 Allergy/AdvReac Type Severity Reaction Status Date / Time No Known Drug Allergies Allergy See Verified 05/06/17 13:46 Comments All Systems Review: The remainder of the systems were reviewed and are negative - Cardiovascular Cardiovascular: as per HPI, radiating jaw, neck or arm pain - Gastrointestinal Gastrointestinal: abdominal pain Physical Examination Vital Signs, Last 4 Hours Temp Pulse Resp BP Pulse Ox 06/15/17 06:58 97.9 F 71 18 111/71 95 Vital Signs Temp Pulse Resp BP Pulse Ox 06/15/17 06:58 97.9 F 71 18 111/71 95 06/15/17 03:48 97.8 F 85 16 93/55 94 06/14/17 23:45 97.7 F 84 16 113/70 93 06/14/17 23:02 97.7 F 85 16 135/80 94 06/14/17 22:46 98 F 18 118/72 06/14/17 21:29 88 18 115/66 98 06/14/17 20:42 92 18 133/90 97 06/14/17 20:00 95 18 125/82 98 06/14/17 18:54 98.1 F 104 18 153/76 98 Intake and Output 06/14/17 06/15/17 06/15/17 23:59 07:59 15:59 Output Total 700 / 700 Balance -700 / -700 Output: Urine 700 / 700 Other: # Voids 1 Weight 110.223 kg Blood Glucose* 184 General: Conversant, No Apparent Distress HEENT: Atraumatic, Normocephaly, Mucus Membranes Moist Neck: No JVD, Normal carotid pulses Cardiac: Reg Rate and Rhythm, Normal S1 and S2, No Murmur Lungs: Normal Breath Sounds, No Wheeze, Rales, Rhonchi Neuro: Alert and responsive, No focal deficits noted Abdomen: Soft, Non-Tender Skin: No rashes noted on visualized skin Musculoskeletal: No Chest Wall Tenderness Extremities: No Clubbing, No Cyanosis, No Edema, Normal Pulses Results 06/15/17 02:36 06/15/17 02:36 Lab Results 06/15/17 06/15/17 06/15/17 02:36 02:36 02:36 WBC 3.4 L Hgb 9.8 L Hct 29.9 L Plt Count 122 L Sodium 139 Potassium 4.1 Chloride 104 Carbon Dioxide 25 BUN 15 Creatinine 1.00 Glucose 206 H Calcium 9.0 Troponin I < 0.03 06/15/17 08:13 WBC Hgb Hct Plt Count Sodium Potassium Chloride Carbon Dioxide BUN Creatinine Glucose Calcium Troponin I < 0.03 Short CBC 06/15/17 06/14/17 Range/Units 02:36 20:04 WBC 3.4 L 5.4 (4.3-11.1) K/mcL Hgb 9.8 L 10.6 L (12.9-16.9) g/dL Hct 29.9 L 33.6 L (37.5-50.1) % Plt Count 122 L 139 L (140-400) K/mcL Neutrophils # 3.4 (1.6-8.9) K/mcL BMP 06/15/17 06/14/17 Range/Units 02:36 20:04 Sodium 139 136 (136-145) mEq/L Potassium 4.1 4.5 (3.5-5.1) mEq/L Chloride 104 102 (98-107) mEq/L Carbon Dioxide 25 26 (23-29) mEq/L BUN 15 15 (8-23) mg/dL Creatinine 1.00 1.17 (0.70-1.30) mg/dL Glucose 206 H 198 H (70-105) mg/dL Calcium 9.0 9.6 (8.6-10.3) mg/dL Cardiac Enzymes 06/15/17 06/15/17 06/14/17 Range/Units 08:13 02:36 20:04 Troponin I < 0.03 < 0.03 < 0.03 (< 0.04) ng/mL Liver Function 06/14/17 Range/Units 20:04 Total Bilirubin 0.6 (0.3-1.0) mg/dL Direct Bilirubin 0.1 (0.0-0.2) mg/dL AST 25 (13-39) Units/L ALT 28 (7-52) Units/L Alkaline Phosphatase 85 (34-104) Units/L Albumin 3.8 (3.5-5.7) g/dL Urine 06/14/17 Range/Units 19:00 Urine Color Yellow (Yellow) Urine Clarity Cloudy A (Clear) Urine pH 5.5 (5.0-8.0) pH Units Ur Specific [place] 1.020 (1.010-1.025) Urine Protein Trace (Neg-Trace) mg/dL Urine Glucose (UA) Normal (Normal) mg/dL Impressions Chest X-Ray 06/14/17 18:58 IMPRESSION: Normal chest x-ray D/ / Rayshawn Cheney MD / Rayshawn Cheney MD Interpreting Provider: Rayshawn Cheney MD Active Medications Acetaminophen (Tylenol) 650 mg PO Q6HR PRN PRN Reason: Mild Pain/Fever Stop: 12/14/17 22:00 Aspirin (Aspirin) 81 mg PO DAILY [facility] Stop: 12/15/17 09:01 Last Admin: 06/15/17 08:42 Dose: 81 mg Atorvastatin Calcium (Lipitor) 80 mg PO HS [facility] Stop: 12/15/17 21:01 Dextrose/Water (Dextrose 50% (Syg)) 25 ml IVP AD PRN PRN Reason: Hypoglycemia Stop: 12/14/17 22:06 Famotidine (Pepcid) 20 mg PO BID [facility] Stop: 12/15/17 09:01 Last Admin: 06/15/17 08:42 Dose: 20 mg Glucagon (Glucagen) 1 mg IM ONCE PRN PRN Reason: Hypoglycemia Stop: 12/14/17 22:06 Glucose (Gluctose) 15 gm PO ONCE PRN PRN Reason: Hypoglycemia Stop: 12/14/17 22:06 Glucose (Gluctose) 30 gm PO ONCE PRN PRN Reason: Hypoglycemia Stop: 12/14/17 22:06 Heparin Sodium (Porcine) (Heparin) 5,000 unit SQ Q8HCO ZENON Stop: 12/14/17 22:31 Last Admin: 06/15/17 05:09 Dose: 5,000 unit Dextrose (Dextrose 5%) 1,000 mls @ 100 mls/hr IVC .Q10H PRN PRN Reason: HYPOGLYCEMIA Stop: 12/14/17 22:06 Insulin Detemir (Levemir) 40 unit SQ HS [facility] Stop: 12/14/17 23:31 Last Admin: 06/14/17 23:58 Dose: 40 unit Insulin Human Lispro (Humalog) 0 units SQ HS [facility] PRN Reason: Protocol Stop: 12/15/17 21:01 Insulin Human Lispro (Humalog) 0 units SQ TIDWM ZENON PRN Reason: Protocol Stop: 12/15/17 08:01 Last Admin: 06/15/17 08:40 Dose: Not Given Lisinopril (Zestril) 5 mg PO DAILY [facility] PRN Reason: Protocol Stop: 12/15/17 09:01 Last Admin: 06/15/17 08:47 Dose: Not Given Metoprolol Tartrate (Lopressor) 25 mg PO BID [facility] Stop: 12/15/17 09:01 Last Admin: 06/15/17 08:47 Dose: Not Given Naloxone HCl (Narcan) 0.4 mg IVP Q2MIN PRN PRN Reason: SEE COMMENTS Stop: 12/14/17 22:00 Ticagrelor (Brilinta) 90 mg PO BID [facility] Stop: 12/15/17 09:01 Last Admin: 06/15/17 08:42 Dose: 90 mg Tramadol HCl (Ultram) 50 mg PO QID PRN PRN Reason: Pain Stop: 12/14/17 22:05 - Imaging and Cardiology Echo: report reviewed Cardiac cath: report reviewed - EKG Interpretation EKG results cardiology: personally reviewed, other (12 hr tele AVG HR 83, SR, no significant pauses or arrhythmias noted.) Consult Discharge Plan - Plan Referrals: Angela Bowedn, BOILER RELINER [Primary Care Provider] -
--- NOTE | 2017-06-15 16:06 | Internal Med Progress Note ---
Date of Encounter: 06/15/17 Time of Encounter: 16:02 - Assessment and plan (1) Right flank pain Current Visit: Yes Status: Acute Assessment and plan: Presented with right flank pain that started 2 days prior to arrival with radiation to bilateral shoulder blades. ED concern for anginal equivalent as noted below. Right leg pain resolved spontaneously without intervention. Etiology unknonw at this time, possibly musculoskeletal in nature as pain worsened after exercising however will obtain abdominal imaging as patient reported pain was severe, sharp and relentless. ABD CT, lipase pending (2) Coronary artery disease Current Visit: Yes Status: Chronic Assessment and plan: Recent NSTEMI 04/2017 with LOUISE to 1st OM and 2nd Diagonal. Presented with right flank pain, EGD concern for anginal equivalent. Serial troponin negative x 3, no EKG changes. TTE 05/07/17 EF 60-65%. Evaluated by [facility]Ardiology who reommneded checking limited TTE, if no significant changes on limited TTE the no further cardiac workup indicated. Cont ASA, brilinta, BB and statin. Qualifiers: Coronary Disease-Associated Artery/Lesion type: [place] artery [place] vs. transplanted heart: [place] heart Associated angina: with unstable angina Qualified Code(s): I25.110 - Atherosclerotic heart disease of [place] coronary artery with unstable angina pectoris (3) DM (diabetes mellitus) Current Visit: Yes Status: Chronic Assessment and plan: per hx. holding home oral hypoglycemics. Continue home long-acting. SSI. Monitor blood sugar and titrate PRN Qualifiers: Diabetes mellitus type: type 2 Diabetes mellitus intermediate insulin use: with intermediate use Diabetes mellitus complication status: with hyperglycemia Qualified Code(s): E11.65 - Type 2 diabetes mellitus with hyperglycemia; Z79.4 - buttermaker helper (current) use of insulin; Z79.4 - senior living (current) use of insulin; Z79.4 - senior living (current) use of insulin; Z79.4 - buttermaker helper (current ) use of insulin (4) HTN (hypertension) Current Visit: Yes Status: Chronic Assessment and plan: per hx. BP controlled. Continue home BP medication. Monitor BP and titrate PRN Qualifiers: Hypertension type: essential hypertension Qualified Code(s): I10 - Essential (primary) hypertension (5) DVT prophylaxis Current Visit: Yes Status: Acute Assessment and plan: heparin - Constitutional Vitals: Temp Pulse Resp BP Pulse Ox 98.8 F 97 18 145/72 92 06/15/17 15:12 06/15/17 15:12 06/15/17 15:12 06/15/17 15:12 06/15/17 15:12 General appearance: Present: A&O X 3, no acute distress, answers questions appropriately Internal Medicine: Result - Labs CBC & Chem 7: 06/15/17 02:36 06/15/17 02:36 Labs: Short CBC 06/15/17 Range/Units 02:36 WBC 3.4 L (4.3-11.1) K/mcL Hgb 9.8 L (12.9-16.9) g/dL Hct 29.9 L (37.5-50.1) % Plt Count 122 L (140-400) K/mcL BMP 06/15/17 02:36 Sodium 139 Potassium 4.1 Chloride 104 Carbon Dioxide 25 BUN 15 Creatinine 1.00 Glucose 206 H Calcium 9.0 Cardiac Enzymes 06/15/17 06/15/17 Range/Units 02:36 08:13 Troponin I < 0.03 < 0.03 (< 0.04) ng/mL Consult Discharge Plan - Plan Referrals: Angela Bowden, BEVERAGE DISTILLER [Primary Care Provider] -
[2017-06-15] MEDS: Insulin DETEMIR 100 UNIT/ML X5UNITS SQ SCH (20:42)
[2017-06-15] MEDS ORDERED: Insulin LISPRO 300 UNITS/3 ML VIAL SQ SCH (21:00)
--- NOTE | 2017-06-15 23:20 | Electrocardiograph Report ---
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
[2017-06-16 05:47] LABS: Hematocrit 36.1 % (37.5-50.1); Hemoglobin 11.3 g/dL (12.9-16.9); Mean Corpuscular HGB Conc 31.3 g/dL (31.6-35.5); Mean Corpuscular Volume 86.4 fL (83.0-100.0); Mean Platelet Volume 10.1 fL (9.4-12.4); Platelet Count 145 K/mcL (140-400); Red Blood Count 4.18 M/mcL (4.19-5.50); Red Cell Distribution Width 15.1 % (11.5-14.5)
[2017-06-16 06:09] LABS: BUN/Creatinine Ratio 16 (6-26); Blood Urea Nitrogen 13 mg/dL (8-23); Calcium 9.6 mg/dL (8.6-10.3); Carbon Dioxide 27 mEq/L (23-29); Chloride 103 mEq/L (98-107); Glucose 192 mg/dL (70-105); Lipase 85 Units/L (11-82); Osmolality,Calculated 291 (280-300); Potassium 4.2 mEq/L (3.5-5.1); Sodium 138 mEq/L (136-145); eGFR For African Americans > 60 (> 60); eGFR For Non-African Americans > 60 (> 60)
[2017-06-16] MEDS: *HR* Heparin 5,000 UNIT/ML VIAL SQ SCH (06:32)
--- NOTE | 2017-06-16 08:01 | Event Note ---
Date of Encounter: 06/16/17 Time of Encounter: 08:00 - Cardiology Event Note Discussed with Dr Bautista. Given atypical symptoms now resolved, limited echo not warranted. Cardiology signing off. Reconsult PRN.
[2017-06-16] MEDS: *HR* Ticagrelor 90 MG TABLET PO SCH (08:42)
[2017-06-16] MEDS: Aspirin 81 MG TAB.CHEW PO SCH (08:42)
[2017-06-16] MEDS: Famotidine 20 MG TABLET PO SCH (08:42)
[2017-06-16] MEDS: Insulin LISPRO 300 UNITS/3 ML VIAL SQ SCH (08:42)
--- NOTE | 2017-06-16 10:14 | Discharge Summary ---
- NOTES TO OUTPATIENT PROVIDER Notes to Outpatient Provider: pcp within week Date of Encounter: 06/16/17 Time of Encounter: 10:12 - Discharge Diagnosis (1) Right flank pain Priority: Primary Status: Acute (2) Coronary artery disease Priority: Primary Status: Chronic Qualifiers: Coronary Disease-Associated Artery/Lesion type: [place] artery [place] vs. transplanted heart: [place] heart Associated angina: with unstable angina Qualified Code(s): I25.110 - Atherosclerotic heart disease of [place] coronary artery with unstable angina pectoris (3) DM (diabetes mellitus) Priority: Primary Status: Chronic Qualifiers: Diabetes mellitus type: type 2 Diabetes mellitus penitentiary insulin use: with penitentiary use Diabetes mellitus complication status: with hyperglycemia Qualified Code(s): E11.65 - Type 2 diabetes mellitus with hyperglycemia; Z79.4 - group home (current) use of insulin; Z79.4 - group home (current) use of insulin; Z79.4 - group home (current) use of insulin; Z79.4 - group home (current ) use of insulin (4) HLD (hyperlipidemia) Priority: Primary Status: Chronic Qualifiers: Hyperlipidemia type: mixed hyperlipidemia Qualified Code(s): E78.2 - Mixed hyperlipidemia (5) HTN (hypertension) Priority: Primary Status: Chronic Qualifiers: Hypertension type: essential hypertension Qualified Code(s): I10 - Essential (primary) hypertension Hospital course: Mr. Escobar is a 61 year old male who presented with right flank pain that was doubt constant had started 2 days previous to presentation. It resolved overnight. He reported radiation into his back and bilateral shoulder blades. It seemed musculoskeletal in orientation. He denied any chest pain not similar to prior anginal equivalent. His troponins were negative with no EKG changes. After examination Dr. Bautista did not feel a echocardiogram was warranted. He felt this was purely flank pain with no cardiac component. Discussed with the patient and he was agreeable for discharge. No change in medications and he will follow-up with his primary care physician for this musculoskeletal discomfort. [place] CT scan was negative and lipase was slightly elevated. Defer to his primary care physician Discharge discussed with: patient, nurse, account consultant - Time Spent with Patient Total time spent providing and/or coordinating discharge services: Less than 30 minutes - Discharge Medications Home Medications: Insulin Glargine,Hum.rec.anlog [Lantus Solostar] 40 unit SQ HS 05/06/17 [History ] Insulin LISPRO [Humalog Kwikpen U-100] 12 unit SQ TIDWM 05/06/17 [History] Lisinopril [Zestril] 5 mg PO DAILY 05/06/17 [History] Metoprolol [Lopressor] 25 mg PO BID 05/06/17 [History] Ranitidine HCl [Zantac] 150 mg PO BID 05/06/17 [History] glipiZIDE [Glipizide] 10 mg PO BID 05/06/17 [History] Aspirin 81 mg PO DAILY tab.chew 05/08/17 [Rx] Atorvastatin [Lipitor] 80 mg PO HS #30 tablet 05/08/17 [Rx] Metformin HCl [Glucophage] 1,000 mg PO BIDWM #0 05/08/17 [Rx] Ticagrelor [Brilinta] 90 mg PO BID #60 tablet 05/08/17 [Rx] Exenatide Microspheres [Bydureon Pen] 2 mg SQ Q7D 05/25/17 [History] Tramadol HCl [Ultram] 50 mg PO QID PRN 05/25/17 [History] Allergies/Adverse Reactions: 3 Allergy/AdvReac Type Severity Reaction Status Date / Time No Known Drug Allergies Allergy See Verified 05/06/17 13:46 Comments Date of admission: 06/14/17 21:38 Primary care physician: Angela Bowden CNP Consults: 06/14/17 21:59 Consult to Cardiology [CONS] Routine Comment: Consulting Provider: [facility] [place] Reason for Consult: Chest pain. Hx of 3 LOUISE placed on 05/07/17. Call Completed: No Discharging clinician: Fransisca Ramírez Anticipated date of discharge: 06/16/17 - Constitutional Vitals: Temp Pulse Resp BP Pulse Ox 98.2 F 81 18 118/77 92 06/16/17 07:14 06/16/17 07:14 06/16/17 07:14 06/16/17 07:14 06/16/17 07:14 General appearance: Present: A&O X 3, no acute distress, answers questions appropriately - Patient Status Disposition: Home, Self-Care Condition: Fair Functional capacity at discharge: independent ambulation Overall status at discharge: patient is back to baseline - Discharge Instructions Instructions: Chest Pain (DC) Follow Up With: Angela Bowden CNP [Primary Care Provider] - 06/23/17 1:00 pm - Diet and Activity Activity: resume usual activities as tolerated Diet: advance to your usual diet, diabetic diet, low fat, low cholesterol, low salt diet
[2017-06-16 11:06] VITALS: BP 111/72
== END 2017-06-16 12:06 | disposition home or self-care (01) ==
LOC: EMEROO 18:53 → 3BNU 18:53
PROVIDERS: ADMIT Internal Medicine; ATTEND Registered Nurse

== ENCOUNTER 2019-07-02 21:42 | Observation (INO) ==
[2019-07-02 22:18] LABS: Basophils # 0.1 K/mcL (0.0-0.2); Basophils % 1.1 %; Eosinophils # 0.2 K/mcL (0.0-0.6); Eosinophils % 4.2 %; Hematocrit 28.6 % (37.5-50.1); Lymphocytes # 0.7 K/mcL (0.6-4.6); Lymphocytes % 16.4 %; Mean Corpuscular HGB Conc 31.5 g/dL (31.6-35.5); Mean Corpuscular Hemoglobin 28.4 pg (28.0-33.3); Mean Corpuscular Volume 90.2 fL (83.0-100.0); Mean Platelet Volume 10.3 fL (9.4-12.4); Monocytes # 0.5 K/mcL (0.0-1.3); Monocytes % 10.8 %; Neutrophils # 3.1 K/mcL (1.6-8.9); Platelet Count 133 K/mcL (140-400); Red Blood Count 3.17 M/mcL (4.19-5.50); Red Cell Distribution Width 14.2 % (11.5-14.5); Segmented Neutrophils % 67.5 %; White Blood Count 4.5 K/mcL (4.3-11.1)
[2019-07-02 22:26] LABS: INR 1.2; Prothrombin Time 13.7 Seconds (9.4-12.1)
[2019-07-02 22:41] LABS: BUN/Creatinine Ratio 19 (6-26); Blood Urea Nitrogen 20 mg/dL (8-23); Calcium 9.2 mg/dL (8.6-10.3); Carbon Dioxide 18 mEq/L (23-29); Chloride 105 mEq/L (98-107); Glucose 253 mg/dL (70-105); Osmolality,Calculated 291 (280-300); Potassium 4.5 mEq/L (3.5-5.1); Sodium 135 mEq/L (136-145); eGFR For African Americans > 60 (> 60); eGFR For Non-African Americans > 60 (> 60)
[2019-07-03] MEDS ORDERED: Naloxone 0.4 MG/ML INJ IVP PRN (01:24)
[2019-07-03] MEDS ORDERED: Ondansetron 4 MG/2 ML VIAL IVP PRN (01:24)
[2019-07-03] MEDS ORDERED: D5% in Water 1,000 ML IVC PRN (01:28)
[2019-07-03] MEDS ORDERED: *HR* Dextrose 50 % in Water (Syg) 50 ML SYRINGE IVP PRN (01:28)
[2019-07-03] MEDS ORDERED: Dextrose Gel 15 GM/37.5 ML TUBE PO PRN ×2 (01:28)
[2019-07-03 04:43] LABS: Basophils % 0.8 %; Eosinophils # 0.1 K/mcL (0.0-0.6); Eosinophils % 3.8 %; Hematocrit 26.9 % (37.5-50.1); Hemoglobin 8.4 g/dL (12.9-16.9); Immature Granulocytes % 0.3 % (0-4); Lymphocytes # 0.9 K/mcL (0.6-4.6); Mean Corpuscular HGB Conc 31.2 g/dL (31.6-35.5); Mean Corpuscular Hemoglobin 28.5 pg (28.0-33.3); Mean Corpuscular Volume 91.2 fL (83.0-100.0); Mean Platelet Volume 10.3 fL (9.4-12.4); Monocytes # 0.4 K/mcL (0.0-1.3); Monocytes % 9.7 %; Neutrophils # 2.3 K/mcL (1.6-8.9); Platelet Count 130 K/mcL (140-400); Red Blood Count 2.95 M/mcL (4.19-5.50); Red Cell Distribution Width 14.2 % (11.5-14.5); Segmented Neutrophils % 60.4 %; White Blood Count 3.7 K/mcL (4.3-11.1)
[2019-07-03 05:05] LABS: % Iron Saturation 5 % (20-55); Iron 23 mcg/dL (65-175); Transferrin 347 mg/dL (203-362)
[2019-07-03 05:25] LABS: Ferritin < 8 ng/mL (20-250)
[2019-07-03] MEDS: Insulin LISPRO 300 UNITS/3 ML VIAL SQ SCH ×3 (05:43→17:21)
[2019-07-03] MEDS: lisinopriL 5 MG TABLET PO SCH (08:28)
[2019-07-03] MEDS ORDERED: *HR* Propofol 200 MG/20 ML VIAL IVP ONE (10:00)
[2019-07-03] MEDS ORDERED: Isovue-370 500 ML BOTTLE IVP ONE (12:13)
[2019-07-03 17:22] LABS: Hematocrit 27.6 % (37.5-50.1); Hemoglobin 8.3 g/dL (12.9-16.9)
[2019-07-04] MEDS: Insulin LISPRO 300 UNITS/3 ML VIAL SQ SCH ×3 (00:16→12:06)
[2019-07-04 04:32] LABS: Basophils % 0.8 %; Eosinophils # 0.2 K/mcL (0.0-0.6); Eosinophils % 4.4 %; Hematocrit 27.5 % (37.5-50.1); Hemoglobin 8.5 g/dL (12.9-16.9); Immature Granulocytes % 0.3 % (0-4); Lymphocytes # 0.9 K/mcL (0.6-4.6); Lymphocytes % 23.4 %; Mean Corpuscular HGB Conc 30.9 g/dL (31.6-35.5); Mean Corpuscular Hemoglobin 27.5 pg (28.0-33.3); Mean Platelet Volume 10.7 fL (9.4-12.4); Monocytes # 0.4 K/mcL (0.0-1.3); Monocytes % 9.9 %; Neutrophils # 2.2 K/mcL (1.6-8.9); Platelet Count 120 K/mcL (140-400); Red Blood Count 3.09 M/mcL (4.19-5.50); Red Cell Distribution Width 14.1 % (11.5-14.5); Segmented Neutrophils % 61.2 %; White Blood Count 3.6 K/mcL (4.3-11.1)
[2019-07-04 04:52] LABS: BUN/Creatinine Ratio 10 (6-26); Blood Urea Nitrogen 9 mg/dL (8-23); Calcium 9.3 mg/dL (8.6-10.3); Carbon Dioxide 27 mEq/L (23-29); Chloride 108 mEq/L (98-107); Glucose 138 mg/dL (70-105); Magnesium 1.4 mg/dL (1.6-2.6); Osmolality,Calculated 291 (280-300); Phosphorous 3.9 mg/dL (2.7-4.5); Potassium 4.2 mEq/L (3.5-5.1); Sodium 140 mEq/L (136-145); eGFR For African Americans > 60 (> 60); eGFR For Non-African Americans > 60 (> 60)
[2019-07-04] MEDS: lisinopriL 5 MG TABLET PO SCH (07:37)
[2019-07-04] MEDS ORDERED: Spironolactone 25 MG TABLET PO SCH (09:00)
[2019-07-04 14:32] VITALS: BP 108/74
[2019-07-04] MEDS ORDERED: Lidocaine 2% Syringe 100 MG/5 ML IV ONE (15:07)
[2019-07-04] MEDS ORDERED: *HR* Propofol 200 MG/20 ML VIAL IVP ONE (15:07)
== END 2019-07-04 15:08 | disposition home or self-care (01) ==
LOC: EMEROOARM 21:42 → 3ANU 21:42 → SUATTDRO 07-03 00:55 → 3ANU 07-03 01:41
PROVIDERS: ADMIT Internal Medicine; ATTEND Internal Medicine
PROC: ENDOCCB (2019-07-04 12:00)

== ENCOUNTER 2020-11-27 18:23 | Observation (INO) ==
[2020-11-27] MEDS ORDERED: Aspirin 81 MG TAB.CHEW PO ONE (18:28)
[2020-11-27] MEDS: Nitroglycerin 0.4 MG TAB.SUBL SL SCH ×2 (19:22→21:38)
[2020-11-27 19:45] LABS: Basophils % 0.8 %; Eosinophils # 0.2 K/mcL (0.0-0.6); Eosinophils % 3.1 %; Hematocrit 35.1 % (37.5-50.1); Hemoglobin 12.5 g/dL (12.9-16.9); Immature Granulocytes % 0.2 % (0-4); Lymphocytes # 0.9 K/mcL (0.6-4.6); Lymphocytes % 16.5 %; Mean Corpuscular HGB Conc 35.6 g/dL (31.6-35.5); Mean Corpuscular Hemoglobin 34.6 pg (28.0-33.3); Mean Corpuscular Volume 97.2 fL (83.0-100.0); Mean Platelet Volume 10.2 fL (9.4-12.4); Monocytes # 0.4 K/mcL (0.0-1.3); Monocytes % 7.3 %; Neutrophils # 3.8 K/mcL (1.6-8.9); Platelet Count 103 K/mcL (140-400); Red Blood Count 3.61 M/mcL (4.19-5.50); Red Cell Distribution Width 13.6 % (11.5-14.5); Segmented Neutrophils % 72.1 %; White Blood Count 5.2 K/mcL (4.3-11.1)
[2020-11-27 19:52] LABS: INR 1.3; Prothrombin Time 14.7 Seconds (9.4-12.1)
[2020-11-27 20:14] LABS: BUN/Creatinine Ratio 12 (6-26); Blood Urea Nitrogen 11 mg/dL (8-23); Carbon Dioxide 22 mEq/L (23-29); Chloride 106 mEq/L (98-107); Glucose 125 mg/dL (70-105); Osmolality,Calculated 287 (280-300); Potassium 4.1 mEq/L (3.5-5.1); Sodium 138 mEq/L (136-145); Troponin I 0.03 ng/mL (< 0.04); eGFR For African Americans > 60 (> 60); eGFR For Non-African Americans > 60 (> 60)
[2020-11-27] MEDS ORDERED: Morphine Sulfate 2 MG/ML SYRINGE IVP PRN (21:44)
[2020-11-27] MEDS ORDERED: Naloxone 0.4 MG/ML INJ IVP PRN (21:45)
[2020-11-27] MEDS ORDERED: *HR* Dextrose 50 % in Water (Vial) 50 ML VIAL IVP PRN (21:45)
[2020-11-27] MEDS ORDERED: Ondansetron 4 MG/2 ML VIAL IVP PRN (21:45)
[2020-11-27] MEDS ORDERED: Melatonin 3 MG TABLET PO PRN (21:45)
[2020-11-27] MEDS ORDERED: Acetaminophen 325 MG TABLET PO PRN (21:45)
[2020-11-27] MEDS ORDERED: Dextrose Gel 15 GM/37.5 ML TUBE PO PRN ×2 (21:45)
[2020-11-27] MEDS ORDERED: D5% in Water 1,000 ML IVC PRN (21:45)
[2020-11-27] MEDS ORDERED: Perflutren Lipid Microsphere 1.3 ML in 0.9 % Sodium Chloride 8.7 ML IVP PRN (21:48)
[2020-11-27] MEDS ORDERED: Furosemide 20 MG/2 ML VIAL IVP ONE (22:27)
[2020-11-28 01:28] LABS: Basophils % 0.8 %; Eosinophils # 0.2 K/mcL (0.0-0.6); Eosinophils % 4.5 %; Hematocrit 33.6 % (37.5-50.1); Hemoglobin 11.7 g/dL (12.9-16.9); Immature Granulocytes % 0.3 % (0-4); Lymphocytes # 0.9 K/mcL (0.6-4.6); Lymphocytes % 24.7 %; Mean Corpuscular HGB Conc 34.8 g/dL (31.6-35.5); Mean Corpuscular Hemoglobin 33.6 pg (28.0-33.3); Mean Corpuscular Volume 96.6 fL (83.0-100.0); Mean Platelet Volume 9.6 fL (9.4-12.4); Monocytes # 0.4 K/mcL (0.0-1.3); Monocytes % 9.4 %; Neutrophils # 2.3 K/mcL (1.6-8.9); Red Blood Count 3.48 M/mcL (4.19-5.50); Red Cell Distribution Width 13.7 % (11.5-14.5); Segmented Neutrophils % 60.3 %; White Blood Count 3.8 K/mcL (4.3-11.1)
[2020-11-28 01:29] LABS: Platelet Count 85 K/mcL (140-400)
[2020-11-28 01:30] LABS: Estimated Average Glucose 160 mg/dl; Hemoglobin A1C 7.2 %
[2020-11-28 01:56] LABS: BUN/Creatinine Ratio 11 (6-26); Blood Urea Nitrogen 11 mg/dL (8-23); Carbon Dioxide 20 mEq/L (23-29); Chloride 105 mEq/L (98-107); Chol/HDL Ratio 3.7 (0-4.9); Cholesterol 95 mg/dL (< 200); Glucose 217 mg/dL (70-105); HDL Cholesterol 26 mg/dL (40-59); LDL Cholesterol,Calculated 44 mg/dL (< 100); Osmolality,Calculated 290 (280-300); Potassium 4.1 mEq/L (3.5-5.1); Sodium 137 mEq/L (136-145); Triglycerides 127 mg/dL (< 150); eGFR For African Americans > 60 (> 60); eGFR For Non-African Americans > 60 (> 60)
[2020-11-28] MEDS ORDERED: *HR* Heparin 5,000 UNIT/ML VIAL IVP PRN (01:58)
[2020-11-28] MEDS ORDERED: *HR* Heparin 5,000 UNIT/ML VIAL IVP ONE (01:58)
[2020-11-28] MEDS: Heparin 25,000UNIT/250ML 1/2NS 25,000 UNIT/250 ML IV.SOLN IVC SCH (02:50)
[2020-11-28] MEDS ORDERED: *HR* Heparin 5,000 UNIT/ML VIAL SQ SCH (06:00)
[2020-11-28] MEDS ORDERED: Aspirin 81 MG TAB.CHEW PO SCH (09:00)
[2020-11-28] MEDS: Insulin LISPRO 300 UNITS/3 ML VIAL SUBQ SCH ×3 (09:11→17:58)
[2020-11-28] MEDS ORDERED: *HR* Ticagrelor 90 MG TABLET PO ONE (10:12)
[2020-11-28] MEDS: Spironolactone 25 MG TABLET PO SCH (10:36)
[2020-11-28] MEDS: *HR* Heparin 5,000 UNIT/ML VIAL IVP PRN (10:54)
[2020-11-28] MEDS ORDERED: 0.9 % Sodium Chloride 1,000 ML ONE (15:10)
[2020-11-28] MEDS ORDERED: ISOVUE-370 200 ML INFUS..BTL ONE (15:10)
[2020-11-28] MEDS ORDERED: Heparin 1,000 UNITS/500 mL 500 ML ONE (15:10)
[2020-11-28] MEDS ORDERED: *HR* Heparin 10,000 UNIT/10 ML VIAL ONE (15:10)
[2020-11-28] MEDS ORDERED: Nitroglycerin 1,000 MCG/5 ML VIAL IV ONE (15:10)
[2020-11-28] MEDS ORDERED: *HR* FentaNYL (PF) 100 MCG/2 ML VIAL ONE (15:24)
[2020-11-28] MEDS ORDERED: *HR* Midazolam HCl 2 MG/2 ML VIAL ONE (15:24)
[2020-11-28] MEDS: *HR* Ticagrelor 90 MG TABLET PO SCH ×2 (17:58→20:10)
[2020-11-28] MEDS ORDERED: Insulin DETEMIR 100 UNIT/ML X5UNITS SUBQ SCH (21:00)
[2020-11-29 00:55] LABS: Mean Corpuscular HGB Conc 34.9 g/dL (31.6-35.5); Mean Platelet Volume 9.9 fL (9.4-12.4)
[2020-11-29 00:57] LABS: Hematocrit 33.8 % (37.5-50.1); Hemoglobin 11.8 g/dL (12.9-16.9); Mean Corpuscular Hemoglobin 33.7 pg (28.0-33.3); Mean Corpuscular Volume 96.6 fL (83.0-100.0); Red Blood Count 3.5 M/mcL (4.19-5.50); Red Cell Distribution Width 13.8 % (11.5-14.5); White Blood Count 3.8 K/mcL (4.3-11.1)
[2020-11-29 01:09] LABS: BUN/Creatinine Ratio 11 (6-26); Blood Urea Nitrogen 11 mg/dL (8-23); Calcium 9.4 mg/dL (8.6-10.3); Carbon Dioxide 28 mEq/L (23-29); Chloride 104 mEq/L (98-107); Glucose 150 mg/dL (70-105); Osmolality,Calculated 288 (280-300); Potassium 4.4 mEq/L (3.5-5.1); Sodium 138 mEq/L (136-145); eGFR For African Americans > 60 (> 60); eGFR For Non-African Americans > 60 (> 60)
[2020-11-29] MEDS: *HR* Heparin 5,000 UNIT/ML VIAL IVP PRN (01:23)
[2020-11-29] MEDS: Heparin 25,000UNIT/250ML 1/2NS 25,000 UNIT/250 ML IV.SOLN IVC SCH (03:13)
[2020-11-29] MEDS ORDERED: *HR* Propofol 200 MG/20 ML VIAL IVP ONE (07:18)
[2020-11-29] MEDS ORDERED: Lidocaine -MPF 2% 5 ML VIAL ONE (07:20)
[2020-11-29] MEDS: Insulin LISPRO 300 UNITS/3 ML VIAL SUBQ SCH ×2 (08:51→11:09)
[2020-11-29] MEDS: *HR* Ticagrelor 90 MG TABLET PO SCH ×2 (08:52→09:49)
[2020-11-29] MEDS: Spironolactone 25 MG TABLET PO SCH (09:49)
[2020-11-29] MEDS ORDERED: Aspirin 81 MG TAB.CHEW PO SCH (10:00)
[2020-11-29] MEDS ORDERED: ISOVUE-370 200 ML INFUS..BTL ONE (10:54)
[2020-11-29] MEDS ORDERED: *HR* Heparin 10,000 UNIT/10 ML VIAL ONE (10:54)
[2020-11-29] MEDS ORDERED: Nitroglycerin 1,000 MCG/5 ML VIAL IV ONE (10:54)
[2020-11-29] MEDS ORDERED: Heparin 1,000 UNITS/500 mL 500 ML ONE (10:54)
[2020-11-29] MEDS ORDERED: 0.9 % Sodium Chloride 2,000 ML ONE (10:54)
[2020-11-29] MEDS ORDERED: *HR* Midazolam HCl 2 MG/2 ML VIAL ONE (11:02)
[2020-11-29] MEDS ORDERED: *HR* FentaNYL (PF) 100 MCG/2 ML VIAL ONE (11:03)
[2020-11-29 13:42] VITALS: PULSE 94
[2020-11-29 15:27] VITALS: BP 118/77; TEMP 98; O2SAT 95
== END 2020-11-29 16:20 | disposition home or self-care (01) ==
LOC: 3BNU 18:23 → EMEROOARM 18:23 → SUATTDRO 20:35 → 3BNU 21:20
PROVIDERS: ADMIT Pharmacist; ATTEND Registered Nurse